=== PATIENT | male | born 1945 | race African-American/Black ===

== ENCOUNTER → 2016-12-05 | Outpatient (CLI) | payer OTHER, BC ==
[~2016-12-05] MED LIST: AMAN100T PO; ASPI81TA28 PO; CARB50TA3 PO; FLUD0.1T10 PO; MIDO5TAB PO; NRN100 PO; RAMI2.5C PO; RASA1TAB PO; RIVA1DIS TOP; [UNRECOGNIZED DRUG - CODE] TD
[2016-12-05 10:06] LABS: BASO % 1.3 %; BASO ABS # 0.06 K/uL (0-0.2); COMPLETE YES; EOS % 3.8 %; HEMATOCRIT 39.3 % (42-52); LYMPH % 20.6 %; LYMPH ABS # 0.97 K/uL (1.2-3.4); MEAN CELL VOLUME 86.6 fL (80-100); MEAN CORPUSCULAR HEMOGLOBIN 29.5 pg (25-34); MEAN CORPUSCULAR HGB CONC 34.1 g/dl (32-36); MEAN PLATELET VOLUME 9.1 fL (7.4-10.4); MONO % 7.8 %; NEUT % 66.5 %; PLATELET COUNT 190 K/uL (130-400); RED BLOOD COUNT 4.54 M/uL (4.7-6.1); WHITE BLOOD COUNT 4.72 K/uL (4.8-10.8)
[2016-12-05 10:17] LABS: ALT/SGPT 9 U/L (12-78); AST/SGOT 13 U/L (15-37); BLOOD UREA NITROGEN 30 mg/dl (7-18); BUN/CREATININE RATIO 20.2 (10-20); CALCIUM 9.5 mg/dl (8.5-10.1); CARBON DIOXIDE 29 mmol/L (21-32); CHLORIDE 106 mmol/L (98-107); GLUCOSE 98 mg/dl (70-99); POTASSIUM 4.3 mmol/L (3.5-5.1); SODIUM 139 mmol/L (136-145)
[2016-12-05 10:21] LABS: ALB/GLOB RATIO 1.1 (0.9-2); ALKALINE PHOSPHATASE 74 U/L (45-117)
== END | disposition home or self-care (01) ==
LOC: C.LAB1850 08:55
PROVIDERS: ATTEND Psychiatry & Neurology Neurology
DX: R56.9 Unspecified convulsions (principal)

== ENCOUNTER → 2016-12-18 | Outpatient (CLI) | payer OTHER, BC ==
[~2016-12-18] VITALS: Ht 175.3 cm; Wt 79.2 kg
[2016-12-18 15:53] VITALS: BP 164/88; PULSE 58; Ht 175.3 cm; Wt 79.2 kg
== END | disposition home or self-care (01) ==
LOC: C.NEUR 15:05
PROVIDERS: ATTEND Internal Medicine Pulmonary Disease
DX: G47.52 REM sleep behavior disorder (principal); G25.81 Restless legs syndrome; G20 Parkinson's disease; G47.00 Insomnia, unspecified

== ENCOUNTER 2017-04-02 14:28 | Emergency (ER) | payer OTHER, BC ==
[~2017-04-02] VITALS: Ht 175.3 cm; Wt 80.0 kg
[2017-04-02 14:45] VITALS: TEMP 36.8; Ht 175.3 cm; Wt 80.0 kg
--- NOTE | 2017-04-02 15:27 | EMERGENCY ROOM VISIT NOTE ---
History Report prepared by Emeli: Harshil Childs Under the Supervision of: Dr. Blu Schuster M.D. First contact with patient: 14:53 Chief Complaint: CHOKING Stated Complaint: FOOD STUCK IN THROAT-FELL BACKWARDS History of Present Illness The patient is a 71 year old male who presents to the Emergency Room with complaints of persistent choking starting around 50 minutes prior to arrival after eating a pastry. The patient's states that the patient ate a pastry and was then having some difficulty swallowing water afterwards. She states that she then performed the Heimlich maneuver twice, and both times some pieces of apple and pastry would come up. She states that afterwards the patient fell backwards, and hit his head, and then while on the ground he was hitting his head on the floor multiple times. The states that the patient has a history of Parkinson's and seizures, and the patient does not remember the episode though he did not lose consciousness. The additionally states that the patient was having difficulty walking earlier before this episode, and he seems to be a little weak. She additionally notes that the patient has had some cold symptoms recently, and he was coughing, sneezing, and he was sweating a little bit earlier. The patient states that he is currently up to date with his tetanus shot. Source of History: patient, spouse/significant other Onset: 50 minutes prior to arrival Position: other (global) Quality: other (choking) Timing: other (persistent) Associated Symptoms: + cough, No LOC Review of Systems See HPI for pertinent positives & negatives. A total of 10 systems reviewed and were otherwise negative. Past Medical & Surgical Medical Problems: (1) Bacteremia (2) Closed head injury (3) Encounter for removal of sutures (4) Erectile dysfunction (5) Facial laceration (6) Facial laceration (7) Facial laceration (8) Fall (9) Forehead laceration (10) HTN (hypertension) (11) Hypertension (12) Parkinson's disease (13) Recurrent UTI (urinary tract infection) (14) Sepsis (15) Thumb laceration Surgical Problems: (1) History of penile implant Family History FHx: cancer FHx: diabetes FHx: hypertension Social History Smoking Status: Never Smoker Alcohol Use: none Marital Status: Housing Status: lives with significant other Occupation Status: retired Current/Historical Medications Scheduled Amantadine Hcl (Symmetrel), 100 MG PO TID Aspirin (Aspirin Ec), 81 MG PO HS Carbidopa/Levodopa (Sinemet Cr 50MG/200MG), 1 TAB PO TID Clonazepam (Klonopin), 0.5 MG PO UD Gabapentin (Gabapentin), 400 MG PO DAILY Metoprolol Tartrate (Lopressor), 25 MG PO BID Midodrine Hcl (Midodrine Hcl), 5 MG PO TID Ramipril (Ramipril), 2.5 MG PO DAILY Rasagiline Mesylate (Azilect), 1 MG PO NOON Rivastigmine (Exelon), 1 PATCH TOP DAILY Rotigotine (Neupro), 8 MG TOP UD Scheduled PRN Mirabegron (Myrbetriq Er), 50 MG PO DAILY PRN for Allergies Coded Allergies: No Known Allergies (Unverified , 11/21/15) Physical Exam Vital Signs Date Time Temp Pulse Resp B/P (MAP) Pulse Ox O2 Delivery O2 Flow Rate FiO2 04/02/17 18:31 121/78 04/02/17 18:16 66 18 125/60 99 Room Air 04/02/17 17:35 62 207/125 04/02/17 17:11 61 167/113 04/02/17 16:57 61 219/131 97 Room Air 04/02/17 16:37 57 04/02/17 16:34 97 Room Air 04/02/17 16:33 57 19/113 97 Room Air 04/02/17 14:45 36.8 85 18 184/115 91 Room Air Physical Exam GENERAL: Patient is in no acute distress. HEENT: No facial trauma. Mucous membranes are moist. There is an abrasion to the right posterior scalp. NECK: No posterior cervical spine tenderness. No stridor, no adenopathy, no meningismus, trachea is midline. LUNGS: Clear to auscultation bilaterally, no wheeze, no rhonchi, breath sounds equal. HEART: Without murmurs gallops or rubs, regular rate and rhythm. ABDOMEN: Soft, nontender, bowel sounds positive, no hernias, no peritonitis. EXTREMITIES: No cyanosis or edema, full range of motion of all the joints without pain or difficulty, no signs for acute trauma. NEUROLOGIC: Awake, alert, moving all extremities equally. Confusion noted consistent with Parkinson's/dementia. GCS of 14. SKIN: No rash, no jaundice, no diaphoresis. Medical Decision & Procedures ER Provider Diagnostic Interpretation: Radiology results as stated below per my review and radiologist interpretation: CT HEAD WITHOUT CONTRAST (CT) CLINICAL HISTORY: Head trauma. Right occipital laceration. COMPARISON STUDY: 11/21/2015 TECHNIQUE: Axial CT of the brain is performed from the vertex to the skull base. IV contrast was not administered for this examination. A dose lowering technique was utilized adhering to the principles of ALARA. CT DOSE: 638.56 mGycm FINDINGS: No intra or extra-axial mass lesions are visualized. There is no CT evidence of acute cortical infarction. There is no evidence of midline shift. There is no acute hemorrhage. No calvarial fractures are visualized. There are patchy white matter hypodensities likely on a small vessel basis. There is no evidence of pathologic ventricular dilatation. There is no evidence of acute sinusitis IMPRESSION: No acute intracranial findings Electronically signed by: Jin Wong M.D. 04/02/2017 3:40 PM Dictated Date/Time: 04/02/2017 3:39 PM CHEST ONE VIEW PORTABLE CLINICAL HISTORY: Choking episode. Leg maneuver was performed. COMPARISON STUDY: 04/27/2015 FINDINGS: The heart is mildly enlarged. There is aortic tortuosity/ectasia. No pneumothorax is visualized. There is no pneumomediastinum. There is no focal pulmonary consolidation. There are no pleural effusions. An electronic device projects over the left chest, possibly representing an event recorder.[ IMPRESSION: No active disease in the chest. Electronically signed by: Jin Wong M.D. 04/02/2017 3:59 PM Dictated Date/Time: 04/02/2017 3:58 PM Laboratory Results 04/02/17 15:15 Red Blood Count 4.46, Mean Corpuscular Volume 87.9, Mean Corpuscular Hemoglobin 29.1, Mean Corpuscular Hemoglobin Concent 33.2, Mean Platelet Volume 9.1, Neutrophils (%) (Auto) 62.7, Lymphocytes (%) (Auto) 24.8, Monocytes (%) (Auto) 7.1, Eosinophils (%) (Auto) 4.8, Basophils (%) (Auto) 0.6, Neutrophils # (Auto) 3.00, Lymphocytes # (Auto) 1.19, Monocytes # (Auto) 0.34, Eosinophils # (Auto) 0.23, Basophils # (Auto) 0.03 04/02/17 15:15 Test 04/02/17 15:15 04/02/17 17:25 White Blood Count 4.79 K/uL (4.8-10.8) Red Blood Count 4.46 M/uL (4.7-6.1) Hemoglobin 13.0 g/dL (14.0-18.0) Hematocrit 39.2 % (42-52) Mean Corpuscular Volume 87.9 fL (80-100) Mean Corpuscular Hemoglobin 29.1 pg (25-34) Mean Corpuscular Hemoglobin Concent 33.2 g/dl (32-36) Platelet Count 152 K/uL (130-400) Mean Platelet Volume 9.1 fL (7.4-10.4) Neutrophils (%) (Auto) 62.7 % Lymphocytes (%) (Auto) 24.8 % Monocytes (%) (Auto) 7.1 % Eosinophils (%) (Auto) 4.8 % Basophils (%) (Auto) 0.6 % Neutrophils # (Auto) 3.00 K/uL (1.4-6.5) Lymphocytes # (Auto) 1.19 K/uL (1.2-3.4) Monocytes # (Auto) 0.34 K/uL (0.11-0.59) Eosinophils # (Auto) 0.23 K/uL (0-0.5) Basophils # (Auto) 0.03 K/uL (0-0.2) RDW Standard Deviation 44.9 fL (36.4-46.3) RDW Coefficient of Variation 13.9 % (11.5-14.5) Immature Granulocyte % (Auto) 0.0 % Immature Granulocyte # (Auto) 0.00 K/uL (0.00-0.02) Anion Gap 7.0 mmol/L (3-11) Est Creatinine Clear Calc Drug Dose 50.9 ml/min Estimated GFR () 60.6 Estimated GFR (Non- 52.3 BUN/Creatinine Ratio 23.9 (10-20) Calcium Level 9.5 mg/dl (8.5-10.1) Magnesium Level 2.2 mg/dl (1.8-2.4) Total Bilirubin 0.4 mg/dl (0.2-1) Aspartate Amino Transf (AST/SGOT) 14 U/L (15-37) Alanine Aminotransferase (ALT/SGPT) 9 U/L (12-78) Alkaline Phosphatase 68 U/L (45-117) Troponin I < 0.015 ng/ml (0-0.045) Total Protein 8.3 gm/dl (6.4-8.2) Albumin 4.5 gm/dl (3.4-5.0) Globulin 3.8 gm/dl (2.5-4.0) Albumin/Globulin Ratio 1.2 (0.9-2) Thyroid Stimulating Hormone (TSH) 0.912 uIu/ml (0.300-4.500) Urine Color DK YELLOW Urine Appearance CLEAR (CLEAR) Urine pH 5.5 (4.5-7.5) Urine Specific [place] 1.029 (1.000-1.030) Urine Protein NEG (NEG) Urine Glucose (UA) NEG (NEG) Urine Ketones TRACE (NEG) Urine Occult Blood NEG (NEG) Urine Nitrite NEG (NEG) Urine Bilirubin NEG (NEG) Urine Urobilinogen NEG (NEG) Urine Leukocyte Esterase TRACE (NEG) Urine WBC (Auto) 5-10 /hpf (0-5) Urine RBC (Auto) 0-4 /hpf (0-4) Urine Hyaline Casts (Auto) 0 /lpf (0-5) Urine Epithelial Cells (Auto) 20-30 /lpf (0-5) Urine Bacteria (Auto) NEG (NEG) Laboratory results reviewed by me. Medications Administered Medications (Trade) Dose Ordered Sig/Fernandez Route Start Time Stop Time Status Last Admin Dose Admin Sodium Chloride 500 ml @ 999 mls/hr Q31M STAT IV 04/02/17 16:05 04/02/17 16:35 DC 04/02/17 16:32 999 MLS/HR Hydralazine HCl (HydrALAZINE INJ) 10 mg NOW STAT IV 04/02/17 16:46 04/02/17 16:49 DC 04/02/17 16:56 10 MG Hydralazine HCl (HydrALAZINE INJ) 10 mg NOW STAT IV 04/02/17 17:46 04/02/17 17:47 DC 04/02/17 17:51 10 MG ECG Indication: other (choking episode) Rate (beats per minute): 55 Rhythm: sinus bradycardia Findings: T-wave inversion (Inferior), no ectopy, other (LVH) Comparison ECG Date: 11/21/15 Change: no significant change ED Course 1453: The patient was evaluated in room A4. A complete history and physical exam was performed. 1605: Sodium Chloride 500 ml @ 999 mls/hr IV 1644: I reevaluated the patient, and he was doing fine. He notes that he did not take his blood pressure medication this morning. 1646: Hydralazine HCl 10mg IV 1746: Hydralazine HCl 10mg IV 1814: Reevaluated the patient, and he is doing well. Discussed results and discharge instructions: He verbalized understanding and agreement. The patient is ready for discharge. Medical Decision Differential Diagnoses include: intracranial bleeding, skull fracture, dehydration, electrolyte imbalance, anemia, infection, choking episode, and aspiration. There is no leukocytosis or concerning anemia. No significant electrolyte abnormality, kidney failure or hepatitis. The patient appears to be in a euthyroid state. EKG shows a sinus rhythm, no acute ischemia. Cardiac enzyme testing times one does not suggest acute cardiac injury. Chest x-ray does not show pneumonia or pneumothorax. Brain CT shows no acute bleed or mass effect. Urinalysis does not show evidence for infection. On exam, there were no focal neurologic deficits. The patient received IV saline, he is resting comfortably. The patient had not taken his blood pressure medication today. He received IV hydralazine, he received 2 doses. His blood pressure is now nicely controlled. He states he does use hydralazine as needed at home for high blood pressure. The patient's workup is unrevealing. He is doing well, no respiratory distress , no wheezing. No evidence for concerning injury from the fall. The patient was reassured. He is being discharged. Head Trauma GCS Score: 14 Medication Reconcilliation Current Medication List: was personally reviewed by me Blood Pressure Screening Patient's blood pressure: Elevated blood pressure Blood pressure disposition: Referred to PCP Impression Primary Impression: Choking episode Additional Impressions: Fall Head trauma Hypertension Scribe Attestation The scribe's documentation has been prepared under my direction and personally reviewed by me in its entirety. I confirm that the note above accurately reflects all work, treatment, procedures, and medical decision making performed by me. Departure Information Dispostion Home / Self-Care Referrals No Doctor, Assigned (PCP) Forms HOME CARE DOCUMENTATION FORM, IMPORTANT VISIT INFORMATION Patient Instructions My [facility] [employer] [facility] Additional Instructions see delfin shafer this week for a recheck and blood pressure check be sure to keep a watch of your blood pressure and take your meds as prescribed return if worsening lab testing and imaging today was all ok Problem Qualifiers
[2017-04-02] MEDS ORDERED: NRN400 PO (15:29)
[2017-04-02] MEDS ORDERED: MIRA1TAB3 PO (15:29)
[2017-04-02] MEDS ORDERED: [UNRECOGNIZED DRUG - CODE] TOP (15:29)
[2017-04-02] MEDS ORDERED: CLON0.5T3 PO (15:29)
[2017-04-02] MEDS ORDERED: LPR25 PO (15:29)
[2017-04-02 15:41] LABS: BASO % 0.6 %; BASO ABS # 0.03 K/uL (0-0.2); COMPLETE YES; EOS % 4.8 %; HEMATOCRIT 39.2 % (42-52); LYMPH % 24.8 %; LYMPH ABS # 1.19 K/uL (1.2-3.4); MEAN CELL VOLUME 87.9 fL (80-100); MEAN CORPUSCULAR HEMOGLOBIN 29.1 pg (25-34); MEAN CORPUSCULAR HGB CONC 33.2 g/dl (32-36); MEAN PLATELET VOLUME 9.1 fL (7.4-10.4); MONO % 7.1 %; NEUT % 62.7 %; PLATELET COUNT 152 K/uL (130-400); RED BLOOD COUNT 4.46 M/uL (4.7-6.1); WHITE BLOOD COUNT 4.79 K/uL (4.8-10.8)
--- NOTE | 2017-04-02 15:41 | DIAGNOSTIC IMAGING REPORT ---
CT HEAD WITHOUT CONTRAST (CT) CLINICAL HISTORY: Head trauma. Right occipital laceration. COMPARISON STUDY: 11/21/2015 TECHNIQUE: Axial CT of the brain is performed from the vertex to the skull base. IV contrast was not administered for this examination. A dose lowering technique was utilized adhering to the principles of ALARA. CT DOSE: 638.56 mGycm FINDINGS: No intra or extra-axial mass lesions are visualized. There is no CT evidence of acute cortical infarction. There is no evidence of midline shift. There is no acute hemorrhage. No calvarial fractures are visualized. There are patchy white matter hypodensities likely on a small vessel basis. There is no evidence of pathologic ventricular dilatation. There is no evidence of acute sinusitis IMPRESSION: No acute intracranial findings Electronically signed by: Jin Wong M.D. 04/02/2017 3:40 PM Dictated Date/Time: 04/02/2017 3:39 PM
[2017-04-02 15:48] LABS: ALT/SGPT 9 U/L (12-78); BLOOD UREA NITROGEN 33 mg/dl (7-18); BUN/CREATININE RATIO 23.9 (10-20); CALCIUM 9.5 mg/dl (8.5-10.1); CARBON DIOXIDE 26 mmol/L (21-32); CHLORIDE 106 mmol/L (98-107); CREATININE 1.37 mg/dl (0.60-1.40); GLUCOSE 89 mg/dl (70-99); MAGNESIUM 2.2 mg/dl (1.8-2.4); POTASSIUM 4.1 mmol/L (3.5-5.1); SODIUM 139 mmol/L (136-145)
[2017-04-02 15:59] LABS: ALB/GLOB RATIO 1.2 (0.9-2); ALKALINE PHOSPHATASE 68 U/L (45-117); AST/SGOT 14 U/L (15-37); THYROID STIMULATING HORMONE 0.912 uIu/ml (0.300-4.500)
--- NOTE | 2017-04-02 16:01 | DIAGNOSTIC IMAGING REPORT ---
CHEST ONE VIEW PORTABLE CLINICAL HISTORY: Choking episode. Leg maneuver was performed. COMPARISON STUDY: 04/27/2015 FINDINGS: The heart is mildly enlarged. There is aortic tortuosity/ectasia. No pneumothorax is visualized. There is no pneumomediastinum. There is no focal pulmonary consolidation. There are no pleural effusions. An electronic device projects over the left chest, possibly representing an event recorder.[ IMPRESSION: No active disease in the chest. Electronically signed by: Jin Wong M.D. 04/02/2017 3:59 PM Dictated Date/Time: 04/02/2017 3:58 PM
[2017-04-02] MEDS ORDERED: SODIUM CHLORIDE 0.9% 500ML 500 ML IV STA (16:05)
[2017-04-02] MEDS ORDERED: HydrALAZINE HCL 20 MG/ML VIAL IV STA ×2 (16:46→17:46)
[2017-04-02 17:52] LABS: URINE APPEARANCE CLEAR (CLEAR); URINE BILIRUBIN NEG (NEG); URINE COLOR DK YELLOW; URINE EPITHELIAL CELL AUTO 20-30 /lpf (0-5); URINE NITRITE NEG (NEG); URINE PH 5.5 (4.5-7.5); URINE SPECIFIC GRAVITY 1.029 (1.000-1.030); UROBILINOGEN NEG (NEG); ZZUR CULT IF INDIC CLEAN CATCH NO
[2017-04-02 18:00] LABS: MANUAL MICROSCOPIC REQUIRED? NO; REVIEW REQ? NO
[2017-04-02 18:16] VITALS: PULSE 66; O2SAT 99
[2017-04-02 18:31] VITALS: BP 121/78
== END 2017-04-02 18:32 | disposition home or self-care (01) ==
LOC: C.EDB 14:30 → C.EDA 18:32
DX: R09.89 Other specified symptoms and signs involving the circulatory and respiratory systems (principal); S09.90XA Unspecified injury of head, initial encounter; W19.XXXA Unspecified fall, initial encounter; I10 Essential (primary) hypertension; R00.1 Bradycardia, unspecified; G20 Parkinson's disease; Z87.440 Personal history of urinary (tract) infections; Z87.828 Personal history of other (healed) physical injury and trauma; Z91.81 History of falling; Z98.890 Other specified postprocedural states; Z79.82 Long term (current) use of aspirin; Z79.899 Other long term (current) drug therapy

== ENCOUNTER → 2017-07-22 | Outpatient (CLI) | payer OTHER, BC ==
[~2017-07-22] MED LIST changes: +CLON0.5T3 PO; -FLUD0.1T10 PO; +LPR25 PO; +MIRA1TAB3 PO; -NRN100 PO; +NRN400 PO; -[UNRECOGNIZED DRUG - CODE] TD; +[UNRECOGNIZED DRUG - CODE] TOP
[2017-07-22 13:05] LABS: BASO % 0.7 %; BASO ABS # 0.04 K/uL (0-0.2); EOS % 2.6 %; EOS ABS # 0.15 K/uL (0-0.5); HEMATOCRIT 41.7 % (42-52); HEMOGLOBIN 13.9 g/dL (14.0-18.0); IG# 0.01 K/uL (0.00-0.02); LYMPH % 20.8 %; LYMPH ABS # 1.19 K/uL (1.2-3.4); MEAN CELL VOLUME 88.5 fL (80-100); MEAN CORPUSCULAR HEMOGLOBIN 29.5 pg (25-34); MEAN CORPUSCULAR HGB CONC 33.3 g/dl (32-36); MEAN PLATELET VOLUME 9.4 fL (7.4-10.4); MONO % 6.8 %; MONO ABS # 0.39 K/uL (0.11-0.59); NEUT % 68.9 %; NEUT ABS # 3.94 K/uL (1.4-6.5); PLATELET COUNT 189 K/uL (130-400); RED CELL DISTRIBUTION WIDTH CV 13.6 % (11.5-14.5); RED CELL DISTRIBUTION WIDTH SD 44.2 fL (36.4-46.3); WHITE BLOOD COUNT 5.72 K/uL (4.8-10.8)
[2017-07-22 14:01] LABS: ALBUMIN 3.9 gm/dl (3.4-5.0); BLOOD UREA NITROGEN 25 mg/dl (7-18); CALCIUM 9.3 mg/dl (8.5-10.1); CARBON DIOXIDE 27 mmol/L (21-32); CREATININE 1.37 mg/dl (0.60-1.40); GLUCOSE 81 mg/dl (70-99); POTASSIUM 4.2 mmol/L (3.5-5.1); SODIUM 138 mmol/L (136-145)
[2017-07-22 14:07] LABS: ALKALINE PHOSPHATASE 81 U/L (45-117); ALT/SGPT 9 U/L (12-78); AST/SGOT 11 U/L (15-37); CHOLESTEROL 163 mg/dl (0-200); LDL CHOLESTEROL CALCULATED 82 mg/dl; TOTAL PROTEIN 7.8 gm/dl (6.4-8.2)
== END | disposition home or self-care (01) ==
LOC: C.LAB1850 12:11
PROVIDERS: ATTEND Internal Medicine
DX: G20 Parkinson's disease (principal); G90.9 Disorder of the autonomic nervous system, unspecified; I10 Essential (primary) hypertension

== ENCOUNTER → 2017-10-08 | Outpatient (CLI) | payer OTHER, BC | END | disposition home or self-care (01) | LOC: C.LAB1850 15:44 | PROVIDERS: ATTEND Internal Medicine | DX: R39.9 Unspecified symptoms and signs involving the genitourinary system (principal) ==

== ENCOUNTER → 2018-01-02 | Outpatient (CLI) | payer OTHER, BC ==
[~2018-01-02] MED LIST changes: -CLON0.5T3 PO; +CLON0.5T9 PO
--- NOTE | 2018-01-02 14:56 | DIAGNOSTIC IMAGING REPORT ---
FACIAL BONES MIN 3 VIEWS RTN CLINICAL HISTORY: Fall. Facial bone pain. COMPARISON STUDY: None. FINDINGS: The calvarium, mandible, nasal bones, orbits, and zygomatic arches appear intact. No facial fractures identified. Paranasal sinuses and mastoid air cells are clear. The nasal septum is midline. IMPRESSION: No fractures identified within the facial bones by conventional radiographic technique. Of note, if the patient's pain continues to progress consider follow-up dedicated maxillofacial CT. Electronically signed by: Emil Riggs M.D. 01/02/2018 2:54 PM Dictated Date/Time: 01/02/2018 2:52 PM
--- NOTE | 2018-01-02 14:56 | DIAGNOSTIC IMAGING REPORT ---
R HAND MIN 3 VIEWS ROUTINE CLINICAL HISTORY: W19.XXXA RIGHT HAND PAIN STATUS POST TRAUMA COMPARISON: None. DISCUSSION: There is acute oblique fracture involving the midshaft of the fifth metacarpal. There is 43 degrees of vertex dorsal angulation at the fracture site. The distal fragment is posterior displacement x 4 mm. In addition there is a dorsal dislocation at the level of the proximal interphalangeal joint of the fifth finger. There is a lucency within the middle phalanx of the fourth digit. This appears nonaggressive. IMPRESSION: 1. Acute fracture involving the midshaft of the fifth metacarpal 2. Dorsal dislocation at the level of the proximal interphalangeal joint of the fifth finger Electronically signed by: Jin Wong M.D. 01/02/2018 2:54 PM Dictated Date/Time: 01/02/2018 2:52 PM
== END | disposition home or self-care (01) ==
LOC: C.RAD1850 14:37
PROVIDERS: ATTEND Internal Medicine
DX: T14.8XXA Other injury of unspecified body region, initial encounter (principal); W19.XXXA Unspecified fall, initial encounter

== ENCOUNTER 2018-08-04 11:58 | Inpatient (IN) ==
[~2018-08-04 11:58] MED LIST changes: -AMAN100T PO; -ASPI81TA28 PO; -CARB50TA3 PO; -CLON0.5T9 PO; +INFLUENZA VACCINE HIGH DOSE 65+ 0.5 ML SYR IM ONE; -LPR25 PO; -MIDO5TAB PO; -MIRA1TAB3 PO; -NRN400 PO; -RAMI2.5C PO; -RASA1TAB PO; -RIVA1DIS TOP; -[UNRECOGNIZED DRUG - CODE] TOP
[2018-08-04] MEDS ORDERED: SODIUM CHLORIDE 0.9% 1000ML 500 ML IV ONE (12:15)
[2018-08-04 12:16] LABS: Basophils # (auto) 0.02 K/uL (0-0.2); Basophils % (auto) 0.3 %; Eosinophils # (auto) 0.12 K/uL (0-0.5); Eosinophils % (auto) 1.9 %; Hematocrit (blood only) 40.4 % (42-52); Hemoglobin 12.7 g/dL (14.0-18.0); Immature Granulocytes # (auto) 0.07 K/uL (0.00-0.02); Immature Granulocytes % (auto) 1.1 %; Lymphocytes # (auto) 2.14 K/uL (1.2-3.4); Mean Corpuscular Hgb Conc 31.4 g/dL (32-36); Mean Corpuscular Volume 93.1 fL (80-100); Mean Platelet Volume 9.5 fL (7.4-10.4); Monocytes # (auto) 0.19 K/uL (0.11-0.59); Neutrophils # (auto) 3.75 K/uL (1.4-6.5); Neutrophils % (auto) 59.7 %; Platelet Count 169 K/uL (130-400); RDW Coefficient of Variation 13.5 % (11.5-14.5); RDW Standard Deviation 45.9 fL (36.4-46.3); Red Blood Count 4.34 M/uL (4.7-6.1); White Blood Count 6.29 K/uL (4.8-10.8)
--- NOTE | 2018-08-04 12:20 | XRay Report ---
SINGLE VIEW CHEST CLINICAL HISTORY: Intubation. FINDINGS: An AP, portable, upright chest radiograph is compared to study dated 04/27/2018. The examin ation is degraded by portable technique and patient rotation. A cardiac pad projects over the right c hest. The tip of an endotracheal tube may project above the thoracic inlet. The heart is mildly enlar ged. The pulmonary vasculature is noncongested. The lungs and pleural spaces are clear. No pneumothor ax is seen. The bony thorax is grossly intact. IMPRESSION: 1. The tip of an endotracheal tube may project above the thoracic inlet. This is not well visualized and clinical correlation will be required. 2. The lungs are clear. 3. Mild cardiac enlargement. Electronically signed by: Blu Patterson M.D. 08/04/2018 12:19 PM
[2018-08-04 12:25] LABS: iSTAT Creatinine 1.5 mg/dl (0.6-1.3); iSTAT Hemoglobin 13.9 g/dl (14.0-18.0); iSTAT Ionized Calcium 1.25 mmol/l (1.12-1.32); iSTAT Potassium 4.3 mEq/L (3.3-5.0)
[2018-08-04 12:31] LABS: iSTAT Arterial Blood Gas HCO3 23 meg/L (19-24); iSTAT Arterial Blood Gas pCO2 63 mmHg (35-46); iSTAT Arterial Blood Gas pH 7.17 (7.35-7.45); iSTAT Carbon Dioxide 25 mEq/l (24-31)
[2018-08-04 12:34] LABS: Alanine Aminotransferase 10 U/L (12-78); Albumin Level 3.6 gm/dl (3.4-5.0); Aspartate Aminotransferase 55 U/L (15-37); BUN Creatinine Ratio 16.9 (10-20); Blood Urea Nitrogen 31 mg/dl (7-18); Calcium 9.1 mg/dl (8.5-10.1); Carbon Dioxide 25 mmol/L (21-32); Chloride 107 mmol/L (98-107); Est GFR (African American) 41.8; Est GFR (Non-African American) 36.1; Glucose 201 mg/dl (70-99); Magnesium 2.2 mg/dl (1.8-2.4); Potassium 4.4 mmol/L (3.5-5.1); Sodium 143 mmol/L (136-145)
[2018-08-04 12:37] LABS: Alkaline Phosphatase 72 U/L (45-117); Bilirubin,Total 0.4 mg/dl (0.2-1); Globulin 3.6 gm/dl (2.5-4.0); Total Protein 7.2 gm/dl (6.4-8.2)
--- NOTE | 2018-08-04 12:41 | CT Scan Report ---
CT SCAN OF THE BRAIN WITHOUT IV CONTRAST CLINICAL HISTORY: Seizure. COMPARISON STUDY: CT of the brain dated 04/27/2018. TECHNIQUE: Unenhanced axial CT scan of the brain is performed from the vertex to the skull base. A do se lowering technique was utilized adhering to the principles of ALARA. The skull base was scanned tw ice due to motion artifact. FINDINGS: An endotracheal tube is noted on the labour market economist tomogram. Secretions are noted in the pharynx. Brain parenchyma: There are age-related involutional changes noting mild to moderate subcortical and periventricular microangiopathic change. There is no hemorrhage, mass effect, or evidence of acute t erritorial ischemia by CT criteria. Guerrier-white matter differentiation is preserved. No extra-axial fl uid collection is seen. Ventricles, sulci, cisterns: Prominent secondary to involutional change. Intracranial vasculature: There is atherosclerotic calcification of the cavernous carotid arteries. Calvarium: The skeletal structures are osteopenic. No depressed calvarial fracture is seen. Sinuses and mastoids: The visualized paranasal sinuses are clear. The mastoid air cells are well pneu matized. Orbits: The bony orbits are grossly intact. IMPRESSION: There is no hemorrhage, mass effect, or evidence of acute territorial ischemia by CT abdirahman munoz. Electronically signed by: Blu Patterson M.D. 08/04/2018 12:39 PM
--- NOTE | 2018-08-04 12:45 | CT Scan Report ---
CT cervical spine wo con CT DOSE: 1386.12 mGy.cm HISTORY: Trauma. Pain. Trauma fall eval for fx TECHNIQUE: Multiaxial CT images of the cervical spine were performed and reformatted in the sagittal and coronal plane without the use of contrast. A dose lowering technique was utilized adhering to th e principles of ALARA. COMPARISON: None. FINDINGS: No fractures. No subluxation. Prevertebral soft tissues and the C1-C2 interval are intact. No pneumothorax. Moderate degenerative disc change C5-C6 and to lesser extent C6-C7. IMPRESSION: No fractures within the cervical spine. Moderate degenerative change. Tracheostomy tube in position. The above report was generated using voice recognition software. It may contain grammatical, syntax or spelling errors. Electronically signed by: Sean Espinosa M.D. 08/04/2018 12:43 PM
[2018-08-04] MEDS ORDERED: ATROPINE SO4 1 MG/ML 1ML VIAL ONE (12:50)
[2018-08-04] MEDS ORDERED: ATROPINE SULFATE 0.1 MG/ML 10ML SYR IV STA (13:02)
[2018-08-04 13:05] LABS: INR 1.2 (0.9-1.1); Prothrombin Time 11.9 Seconds (9.0-12.0)
[2018-08-04] MEDS ORDERED: SODIUM BICARBONATE 8.4% INJ 50 MEQ/50 ML VIAL ONE (13:10)
[2018-08-04] MEDS ORDERED: SODIUM BICARB 8.4% INJ 50 MEQ/50 ML SYR ONE (13:11)
[2018-08-04] MEDS ORDERED: SODIUM BICARB 8.4% INJ 50 MEQ/50 ML SYR IV STA (13:19)
[2018-08-04] MEDS ORDERED: ICU PROTOCOL FOR HYPERGLYCEMIA PRN ×2 (13:28→15:36)
--- NOTE | 2018-08-04 13:31 | History & Physical Report ---
Date of Service August 04, 2018 Assessment & Plan (1) Cardiopulmonary arrest: - Pt possibly had a seizure for approx. 10 minutes and was found to be apneic and asystole upon arrival of EMS - was intubated and given epi x 1 which resulted in sinus tachycardia; then had episodes of bradycardia which responded to atropine in the ED - sustained cardiac arrest/respiratory failure/arrest - Currently remains intubated and unresponsive - head CT unremarkable with possible MRI - high suspicion for an anoxic brain injury - Initial ABG with pH 7.17, CO2 63, pO2 175, and HCO3 23 with serial ABGs ordered - Utilizing hyperventilation to help correct acidosis - Echo - EF 50-55%; no wall motion abnormalities - Lactic 2.5 - Appreciate roll plugger machine operator management of ventilator/acidosis Present on Admission?: Yes (2) Status epilepticus: - Reported seizure-like activity for approx. 10 minutes - questionable seizure history as family at bedside states he would only have them intermittently when he falls and only lasts approx. 30 seconsd which given his orthostasis and syncope history maybe these "seizures" are more from the syncope and this is related to autonomic dysregulation given his Parkinsons - No reports of emesis; CXR currently WNL without signs of aspiration event - Keppra 500 mg IV BID initiated and plan for EEG Present on Admission?: Yes (3) History of seizure: - See above Present on Admission?: Yes (4) CKD (chronic kidney disease), stage III: - Baseline appears to be 1.3-1.6 so currently slightly above baseline but has had higher Cr readings in the past - Wallace present and monitor urine output and trend labs as he would be at risk for ATN as he also had hypotension initially Present on Admission?: Yes (5) Essential hypertension: - Currently elevated but did have hypotension initially - Per outpatient records it is stated he is on Metoprolol which will need to be F/U on to see if this is truly being used as he does have issues with orth ostasis and takes midodrine Present on Admission?: Yes (6) Parkinson disease: - Amantadine 100 mg TID, Neupro patch daily; Rasagiline 1 mg daily; Exelon patch daily Present on Admission?: Yes History of Present Illness Chief Complaint: Cardiac Arrest Primary Care Provider: Francesco Mendez MD Mr. Pedersen is a 72 y/o male with PMHx of Advanced Parkinson's Disease, HTN, CKD III, and ?Seizure Disorder who presents to the ED by EMS for seizure activity and cardiac arrest. HPI obtained by at bedside as patient is currently intubated. She reports she heard a loud sound and thought he fell. However, when she found him he was sitting in the chair and actively seizing. She states this episode lasted about 10 minutes. She states he doesn't directly have a seizure disorder but seems to have seizures when he falls. He does have documented syncopal episodes likely related to autonomic dysregulation from Parkinsons and maybe these are more syncopal episodes? Regardless, these normally only last 30 seconds and comes to rather quickly. She states he remained unresponsive during this episode today. Upon arrival of EMS he was found to be apneic and asystole. CPR was initiated and he was intubated. He was given epinephrine x 1 with resultant sinus tachycardia. While in the ED, he then developed bradycardia and was treated with Atropine. Labs currently rather unremarkable at this time. ABG shows pH 7.17, CO2 63, pO2 175, and HCO3 of 23. states he has been in his normal state of health recently without illness. She denies known cardiac disease but states he had a loop recorder x 2 years that was removed due to no underlying arrhythmias noted. Allergies Allergy/AdvReac Type Severity Reaction Status Date / Time No Known Allergies Allergy Verified 08/04/18 13:49 Home Medications Home Medications Medication Instructions Recorded Confirmed Type Neupro 1 patch TRANSDERMAL DIRECTED 04/10/18 08/04/18 History amantadine HCl 100 mg PO TID 04/10/18 08/04/18 History aspirin [Aspir-81] 81 mg PO HS 04/10/18 08/04/18 History carbidopa-levodopa 1 tab PO TID 04/10/18 08/04/18 History clonazepam 0.5 mg PO HS PRN 04/10/18 08/04/18 History gabapentin 400 mg PO DAILY 04/10/18 08/04/18 History midodrine 5 mg PO BID 04/10/18 08/04/18 History omeprazole 20 mg PO DAILY 04/10/18 08/04/18 History rasagiline [Azilect] 1 mg PO DAILY 04/10/18 08/04/18 History rivastigmine [Exelon] 1 patch TRANSDERMAL DAILY 04/10/18 08/04/18 History metoprolol tartrate 25 mg PO BID 08/04/18 08/04/18 History Past Med/Surg History Medical History Seizure after head injury History of seizure (Chronic) Orthostatic hypotension (Acute) Parkinson disease (Chronic) Seizures (Chronic) Recurrent UTI (urinary tract infection) (12/06/13) Thumb laceration Surgical History History of tonsillectomy Family History Mother , age 67 of [address] No problems noted. Father No problems noted. Other Cancer HTN (hypertension) Heart disease Social History Laboratory Clerk Required: No Beliefs That Will Affect Care: None marital status: Current Living Situation: Spouse current occupational status: retired current occupation: Retired age 64 from [employer] in [facility]. Feels Safe at Home: Yes Smoking Status: Never smoker Hx Alcohol Use: No Hx Substance Use: No Review of Systems Unobtainable due to endotracheal tube and Unobtainable due to reduced conscio usness Physical Exam Vital Signs (Past 24 Hours): Last Vital Signs Pulse 61 08/04/18 13:31 Resp 22 08/04/18 13:31 BP 117/83 08/04/18 13:31 Pulse Ox 100 08/04/18 13:31 Constitutional: well developed and well nourished; no acute distress intubated Eyes: + anicteric sclerae and PERRL ENMT: mild bleeding noted to L upper lip; ET tube present Neck: trachea midline Respiratory: normal respiratory effort, lungs clear to auscultation Cardiovascular: Rate/Rhythm: regular rate and regular rhythm Heart Sounds: no murmur Vessels: normal peripheral pulses; no JVD Extremities: no edema Gastrointestinal (Abdomen): Inspection/Auscultation: normal bowel sounds Musculoskeletal: Head/Neck/Chest: normocephalic and head atraumatic (other than slight bleeding of upper L lip) Extremities: no cyanosis and no clubbing pulses 2+ with immediate cap refill Skin: no rashes, warm and dry Neurologic: intubated and unresponsive Psychiatric: Orientation: + not alert Results & Data Laboratory Results 08/04/18 08/04/18 08/04/18 Range/Units 17:15 17:08 16:52 WBC (4.8-10.8) K/uL RBC (4.7-6.1) M/uL Hgb (14.0-18.0) g/dL POC Hgb (14.0-18.0) g/dl Hct (42-52) % POC Hct (42-52) % MCV (80-100) fL MCH (25-34) pg MCHC (32-36) g/dL RDW Std Deviation (36.4-46.3) fL RDW Coeff of Lashawn (11.5-14.5) % Plt Count (130-400) K/uL MPV (7.4-10.4) fL Immature Gran % (Auto) % Neut % (Auto) % Lymph % (Auto) % [place] % (Auto) % Eos % (Auto) % Baso % (Auto) % Immature Gran # (Auto) (0.00-0.02) K/uL Neut # (Auto) (1.4-6.5) K/uL Lymph # (Auto) (1.2-3.4) K/uL [place] # (Auto) (0.11-0.59) K/uL Eos # (Auto) (0-0.5) K/uL Baso # (Auto) (0-0.2) K/uL PT INR APTT PTT Ratio Sample Site L Radial POC pH 7.55 H* (7.35-7.45) POC pCO2 28 L (35-46) mmHg POC pO2 199 H (80-95) mmHg POC HCO3 25 H (19-24) stacy/L POC Total CO2 25 (24-31) mEq/l POC Base Excess 2.0 H (-9-1.8) stacy/L POC ABG O2 Sat 100.0 H (90-95) % Stefano Test Pass O2 Delivery Device Ventilator POC O2 Rate 20 Minute Ventilation 17.8 POC FiO2 40 % Tidal Volume 500 PEEP 5 POC Sodium (135-144) mEq/L Sodium (136-145) mmol/L POC Potassium (3.3-5.0) mEq/L Potassium (3.5-5.1) mmol/L POC Chloride (101-112) mEq/L Chloride (98-107) mmol/L Carbon Dioxide (21-32) mmol/L Anion Gap (3-11) POC Anion Gap (16-25) mmol/L POC BUN (7-18) mg/dl BUN (7-18) mg/dl Creatinine (0.6-1.4) mg/dl POC Creatinine (0.6-1.3) mg/dl Est Cr Clr Drug Dosing Est GFR ( Amer) Est GFR (Non-Af Amer) BUN/Creatinine Ratio (10-20) Glucose (70-99) mg/dl POC Glucose 76 (70-99) POC Glucose (other) (70-99) mg/dl Lactate (0.4-2.0) mmol/L Calcium (8.5-10.1) mg/dl POC Ioniz Calcium Maykel (1.12-1.32) mmol/l Magnesium (1.8-2.4) mg/dl Total Bilirubin (0.2-1) mg/dl AST (15-37) U/L ALT (12-78) U/L Alkaline Phosphatase (45-117) U/L Total Protein (6.4-8.2) gm/dl Albumin (3.4-5.0) gm/dl Globulin (2.5-4.0) gm/dl Albumin/Globulin Ratio (0.9-2) Nasal Screen MRSA (PCR) (Negative) Levetiracetam Pending Blood Type Antibody Screen 08/04/18 08/04/18 08/04/18 Range/Units 15:57 15:57 15:30 WBC (4.8-10.8) K/uL RBC (4.7-6.1) M/uL Hgb (14.0-18.0) g/dL POC Hgb (14.0-18.0) g/dl Hct (42-52) % POC Hct (42-52) % MCV (80-100) fL MCH (25-34) pg MCHC (32-36) g/dL RDW Std Deviation (36.4-46.3) fL RDW Coeff of Lashawn (11.5-14.5) % Plt Count (130-400) K/uL MPV (7.4-10.4) fL Immature Gran % (Auto) % Neut % (Auto) % Lymph % (Auto) % [place] % (Auto) % Eos % (Auto) % Baso % (Auto) % Immature Gran # (Auto) (0.00-0.02) K/uL Neut # (Auto) (1.4-6.5) K/uL Lymph # (Auto) (1.2-3.4) K/uL [place] # (Auto) (0.11-0.59) K/uL Eos # (Auto) (0-0.5) K/uL Baso # (Auto) (0-0.2) K/uL PT INR APTT PTT Ratio Sample Site POC pH (7.35-7.45) POC pCO2 (35-46) mmHg POC pO2 (80-95) mmHg POC HCO3 (19-24) stacy/L POC Total CO2 (24-31) mEq/l POC Base Excess (-9-1.8) stacy/L POC ABG O2 Sat (90-95) % Stefano Test O2 Delivery Device POC O2 Rate Minute Ventilation POC FiO2 % Tidal Volume PEEP POC Sodium (135-144) mEq/L Sodium (136-145) mmol/L POC Potassium (3.3-5.0) mEq/L Potassium (3.5-5.1) mmol/L POC Chloride (101-112) mEq/L Chloride (98-107) mmol/L Carbon Dioxide (21-32) mmol/L Anion Gap (3-11) POC Anion Gap (16-25) mmol/L POC BUN (7-18) mg/dl BUN (7-18) mg/dl Creatinine (0.6-1.4) mg/dl POC Creatinine (0.6-1.3) mg/dl Est Cr Clr Drug Dosing Est GFR ( Amer) Est GFR (Non-Af Amer) BUN/Creatinine Ratio (10-20) Glucose (70-99) mg/dl POC Glucose (70-99) POC Glucose (other) (70-99) mg/dl Lactate 2.5 H* (0.4-2.0) mmol/L Calcium (8.5-10.1) mg/dl POC Ioniz Calcium Maykel (1.12-1.32) mmol/l Magnesium (1.8-2.4) mg/dl Total Bilirubin (0.2-1) mg/dl AST (15-37) U/L ALT (12-78) U/L Alkaline Phosphatase (45-117) U/L Total Protein (6.4-8.2) gm/dl Albumin (3.4-5.0) gm/dl Globulin (2.5-4.0) gm/dl Albumin/Globulin Ratio (0.9-2) Nasal Screen MRSA (PCR) Negative (Negative) Levetiracetam Blood Type A Positive Antibody Screen NEGATIVE 08/04/18 08/04/18 08/04/18 Range/Units 12:43 12:13 12:11 WBC (4.8-10.8) K/uL RBC (4.7-6.1) M/uL Hgb (14.0-18.0) g/dL POC Hgb 13.9 L (14.0-18.0) g/dl Hct (42-52) % POC Hct 41 L (42-52) % MCV (80-100) fL MCH (25-34) pg MCHC (32-36) g/dL RDW Std Deviation (36.4-46.3) fL RDW Coeff of Lashawn (11.5-14.5) % Plt Count (130-400) K/uL MPV (7.4-10.4) fL Immature Gran % (Auto) % Neut % (Auto) % Lymph % (Auto) % [place] % (Auto) % Eos % (Auto) % Baso % (Auto) % Immature Gran # (Auto) (0.00-0.02) K/uL Neut # (Auto) (1.4-6.5) K/uL Lymph # (Auto) (1.2-3.4) K/uL [place] # (Auto) (0.11-0.59) K/uL Eos # (Auto) (0-0.5) K/uL Baso # (Auto) (0-0.2) K/uL PT 11.9 INR 1.2 H APTT PTT Ratio Sample Site POC pH 7.17 L* (7.35-7.45) POC pCO2 63 H (35-46) mmHg POC pO2 175 H (80-95) mmHg POC HCO3 23 (19-24) stacy/L POC Total CO2 26 25 (24-31) mEq/l POC Base Excess -6.0 (-9-1.8) stacy/L POC ABG O2 Sat 99.0 H (90-95) % Stefano Test O2 Delivery Device POC O2 Rate Minute Ventilation POC FiO2 % Tidal Volume PEEP POC Sodium 145 H (135-144) mEq/L Sodium (136-145) mmol/L POC Potassium 4.3 (3.3-5.0) mEq/L Potassium (3.5-5.1) mmol/L POC Chloride 106 (101-112) mEq/L Chloride (98-107) mmol/L Carbon Dioxide (21-32) mmol/L Anion Gap (3-11) POC Anion Gap 19.0 (16-25) mmol/L POC BUN 34 H (7-18) mg/dl BUN (7-18) mg/dl Creatinine (0.6-1.4) mg/dl POC Creatinine 1.5 H (0.6-1.3) mg/dl Est Cr Clr Drug Dosing Est GFR ( Amer) Est GFR (Non-Af Amer) BUN/Creatinine Ratio (10-20) Glucose (70-99) mg/dl POC Glucose (70-99) POC Glucose (other) 199 H (70-99) mg/dl Lactate (0.4-2.0) mmol/L Calcium (8.5-10.1) mg/dl POC Ioniz Calcium Maykel 1.25 (1.12-1.32) mmol/l Magnesium (1.8-2.4) mg/dl Total Bilirubin (0.2-1) mg/dl AST (15-37) U/L ALT (12-78) U/L Alkaline Phosphatase (45-117) U/L Total Protein (6.4-8.2) gm/dl Albumin (3.4-5.0) gm/dl Globulin (2.5-4.0) gm/dl Albumin/Globulin Ratio (0.9-2) Nasal Screen MRSA (PCR) (Negative) Levetiracetam Blood Type Antibody Screen 08/04/18 08/04/18 08/04/18 Range/Units 12:05 12:05 12:05 WBC 6.29 (4.8-10.8) K/uL RBC 4.34 L (4.7-6.1) M/uL Hgb 12.7 L (14.0-18.0) g/dL POC Hgb (14.0-18.0) g/dl Hct 40.4 L (42-52) % POC Hct (42-52) % MCV 93.1 (80-100) fL MCH 29.3 (25-34) pg MCHC 31.4 L (32-36) g/dL RDW Std Deviation 45.9 (36.4-46.3) fL RDW Coeff of Lashawn 13.5 (11.5-14.5) % Plt Count 169 (130-400) K/uL MPV 9.5 (7.4-10.4) fL Immature Gran % (Auto) 1.1 % Neut % (Auto) 59.7 % Lymph % (Auto) 34.0 % [place] % (Auto) 3.0 % Eos % (Auto) 1.9 % Baso % (Auto) 0.3 % Immature Gran # (Auto) 0.07 H (0.00-0.02) K/uL Neut # (Auto) 3.75 (1.4-6.5) K/uL Lymph # (Auto) 2.14 (1.2-3.4) K/uL [place] # (Auto) 0.19 (0.11-0.59) K/uL Eos # (Auto) 0.12 (0-0.5) K/uL Baso # (Auto) 0.02 (0-0.2) K/uL PT Cancelled INR Cancelled APTT Cancelled PTT Ratio Cancelled Sample Site POC pH (7.35-7.45) POC pCO2 (35-46) mmHg POC pO2 (80-95) mmHg POC HCO3 (19-24) stacy/L POC Total CO2 (24-31) mEq/l POC Base Excess (-9-1.8) stacy/L POC ABG O2 Sat (90-95) % Stefano Test O2 Delivery Device POC O2 Rate Minute Ventilation POC FiO2 % Tidal Volume PEEP POC Sodium (135-144) mEq/L Sodium 143 (136-145) mmol/L POC Potassium (3.3-5.0) mEq/L Potassium 4.4 (3.5-5.1) mmol/L POC Chloride (101-112) mEq/L Chloride 107 (98-107) mmol/L Carbon Dioxide 25 (21-32) mmol/L Anion Gap 12.0 H (3-11) POC Anion Gap (16-25) mmol/L POC BUN (7-18) mg/dl BUN 31 H (7-18) mg/dl Creatinine 1.85 H (0.6-1.4) mg/dl POC Creatinine (0.6-1.3) mg/dl Est Cr Clr Drug Dosing Not Reportable Est GFR ( Amer) 41.8 Est GFR (Non-Af Amer) 36.1 BUN/Creatinine Ratio 16.9 (10-20) Glucose 201 H (70-99) mg/dl POC Glucose (70-99) POC Glucose (other) (70-99) mg/dl Lactate (0.4-2.0) mmol/L Calcium 9.1 (8.5-10.1) mg/dl POC Ioniz Calcium Maykel (1.12-1.32) mmol/l Magnesium 2.2 (1.8-2.4) mg/dl Total Bilirubin 0.4 (0.2-1) mg/dl AST 55 H (15-37) U/L ALT 10 L (12-78) U/L Alkaline Phosphatase 72 (45-117) U/L Total Protein 7.2 (6.4-8.2) gm/dl Albumin 3.6 (3.4-5.0) gm/dl Globulin 3.6 (2.5-4.0) gm/dl Albumin/Globulin Ratio 1.0 (0.9-2) Nasal Screen MRSA (PCR) (Negative) Levetiracetam Blood Type Antibody Screen Code Status & VTE Plan Code Status FULL RESUSCITATION Critical Care Time This includes chart review, patient assessment, dicussion with family, discussion with consultants, intervention. Critical Care Time: Yes Total Critical Care Time: 45 Supervising Physician Co-Signing Physician Notes DOE Supervision Note: I personally saw and examined the patient. I verified all frost points and agree with DOE Chavira with the following exceptions and/or additions: This patient is a 72-year-old male with a history of advanced Parkinson's disease, questionable seizure disorder as above, who presented after being found with seizure-like activity at home for approximately 10 minutes and had a respiratory and cardiac arrest. He was resuscitated in the field by paramedics and upon arrival in the ER, was unresponsive and intubated. He was found to be acidotic with an acute respiratory acidosis from acute hypoxic and hypercapnic respiratory failure. History otherwise as above ROS unobtainable due to reduced consciousness Labs and imaging reviewed Vitals reviewed Gen: Obtunded, does not respond to verbal or tactile stimulus, intubated, NAD HEENT: ET tube in place with bloody left upper lip CV: RRR no mgr nl S1S2 Pulm: CTAB no wcr Abd: +BS soft NT ND no masses or hernias Ext: No edema, 2+ DP pulses Skin: No rashes, warm/dry Neuro: Unresponsive as above 72-year-old male here with the above history with likely status epilepticus and ensuing respiratory arrest leading to cardiac arrest. Resuscitated in the field and now with possible acute hypoxic brain injury. Defer critical care management to roll plugger machine operator at this time Ventilator management as per roll plugger machine operator Acidosis management with hyperventilation No need for antibiotics at this time as no signs of infection Antiepileptic drugs are recommended by neurology based on EEG findings-he is on Keppra and is being sedated with propofol Prognosis is very guarded
--- NOTE | 2018-08-04 13:32 | Critical Care Consultation ---
Date of Consultation August 04, 2018 Assessment & Plan (1) Cardiopulmonary arrest: Reason Critically Ill: 72-year-old male status post seizure and cardiac arrest with successful return resuscitation infield, requiring intubation. Admitted to ICU for further care and management. Neuro - Currently unresponsive to stimuli, will consider MRI for rule out anoxic brain injury CAM ICU: Positive; Parkinson's disease- Continue Home meds Seizures- Given 1 mg Ativan in route - Obtain EEG - CT head negative - Restart clonazepam to avoid withdrawal when appropriate -IV Keppra BID Cardiac - Cardiac arrest - EKG sinus bradycardia,QTC 430 - Obtain lactic acid - Obtain TTE - Monitor and replete electrolytes - Continuous monitoring on telemetry - ASA 81mg Respiratory Respiratory failure 2/2 cardiac arrest - Intubated vent settings: ACVC 20/500/5/40%, ABG 7.17/63/175/23 - Routine ABGs - CXR unremarkable -AA nebs -Pulmonary toilet GI - Follow-up LFTs RENAL/LYTES CKD Patient creatinine/BUN consistent with prior studies. Monitor with routine BMPs Wallace, Strict I's and O's ENDO -ICU sliding scale protocol -Follow-up hemoglobin A1c HEME Monitor routine CBCs ID No indication for infectious process at this time, monitor LINES/IV ACCESS Peripheral IVs, Wallace DVT PROPHYLAXIS - SCDs, subcu heparin every 8 hours CODE STATUSfull code I have personally spent 95 minutes of critical care time in the direct management of this patient. This is a life/limb threatening event. This includes time spent evaluating patient, direct bedside care, chart review, placing orders, interpretation of diagnostic studies, discussion with consultants, patient, and/or family members regarding treatment decisions, as well as other required patient management activities. This time is exclusive of all separately billable procedures, and teaching time and separate from and in addition to any other critical care service time. (2) Seizure: (3) HTN (hypertension): (4) Parkinson disease: History of Present Illness History of Present Illness Mr. Pedersen is a 72-year-old male with past medical history significant for syncopal episodes, hypertension, orthostatic hypotension, advanced stage Park inson's disease, CKD who presents to the emergency department following a seizure which progressed into asystole cardiac arrest in Which paramedics successfully resuscitated the patient in the field with epinephrine and CPR to sinus tachycardia. The had found the patient seizing in chair, seizure lasted approximately 10 minutes after which the patient was apneic and unresponsive. After resuscitation the patient was intubated and given 1 mg Ativan in route to hospital by paramedics. On arrival to the ED, patient was bradycardic and given atropine. CT head and cervical spine both negative. ABG 7.17/63/175/23.Plan to transfer to ICU for further management of critically ill patient. Allergies Allergy/AdvReac Type Severity Reaction Status Date / Time No Known Allergies Allergy Verified 08/04/18 13:49 Home Medications Home Medications Medication Instructions Recorded Confirmed Type Neupro 1 patch TRANSDERMAL DIRECTED 04/10/18 08/04/18 History amantadine HCl 100 mg PO TID 04/10/18 08/04/18 History aspirin [Aspir-81] 81 mg PO HS 04/10/18 08/04/18 History carbidopa-levodopa 1 tab PO TID 04/10/18 08/04/18 History clonazepam 0.5 mg PO HS PRN 04/10/18 08/04/18 History gabapentin 400 mg PO DAILY 04/10/18 08/04/18 History midodrine 5 mg PO BID 04/10/18 08/04/18 History omeprazole 20 mg PO DAILY 04/10/18 08/04/18 History rasagiline [Azilect] 1 mg PO DAILY 04/10/18 08/04/18 History rivastigmine [Exelon] 1 patch TRANSDERMAL DAILY 04/10/18 08/04/18 History metoprolol tartrate 25 mg PO BID 08/04/18 08/04/18 History Patient History Medical History Seizure after head injury History of seizure (Chronic) Orthostatic hypotension (Acute) Parkinson disease (Chronic) Seizures (Chronic) Recurrent UTI (urinary tract infection) (12/06/13) Thumb laceration Surgical History History of tonsillectomy Family History Mother , age 67 of an [place] No problems noted. Father No problems noted. 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 Feels Safe at Home: Yes Smoking Status: Never smoker Hx Alcohol Use: No Hx Substance Use: No Review of Systems Unable to obtain 12 system ROS secondary to altered mental status Physical Exam Vital Signs (Past 24 Hours): Last Vital Signs Pulse 56 L 08/04/18 13:25 Resp 22 08/04/18 13:25 BP 88/66 L 08/04/18 13:25 Pulse Ox 100 08/04/18 13:25
[2018-08-04] MEDS ORDERED: GLUCOSE 40% GEL 15 GM TUBE PO PRN (15:36)
[2018-08-04] MEDS ORDERED: GLUCOSE 10 TABS/TUBE PO PRN (15:36)
[2018-08-04] MEDS ORDERED: ALBUT/IPRATROP 3MG/0.5MG NEB 3 ML VIAL INH PRN (15:36)
[2018-08-04] MEDS ORDERED: fentaNYL citrate 100 MCG/2 ML VIAL IV PRN (15:36)
[2018-08-04] MEDS ORDERED: NORMOSOL-R 1,000 ML IV SCH (15:36)
[2018-08-04] MEDS ORDERED: DEXTROSE 50% 50 ML SYRINGE IV PRN (15:36)
[2018-08-04] MEDS ORDERED: CARBOHYDRATES FOR HYPOGLYCEMIA PO PRN (15:36)
[2018-08-04] MEDS ORDERED: GLUCAGON FOR INJ 1 MG VIAL SQ PRN (15:36)
--- NOTE | 2018-08-04 16:25 | Emergency Department Note ---
Entered by Carito Dai acting as a scribe for Sameer Orellana MD History of Present Illness General Chief complaint: Cardiac Arrest/CPR Stated complaint: cardiac arrest Time Seen by Provider: 08/04/18 12:00 Source: family and EMS Mode of arrival: EMS Limitations: other (The HPI is limited secondary to unresponsiveness. ) History of Present Illness Onset (ago): hour(s) (1100) Location: head (seizure) Quality: + other (seizure) Associated symptoms: + seizure and + other (The patient is unresponsive. ) The HPI is limited secondary to unresponsiveness. 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 Per EMS, the patient was found by his in a chair while he was unresponsive and having a seizure. They note that the patients called EMS. When they arrived the patient was apneic and pulseless in asystole. They started resuscitation and he received 1 dose of epinephrine IV. He was intub ated and had return of spontaneous circulation. He was severely hypertensive and tachycardic. Home Medications Home Medications Medication Instructions Recorded Confirmed Type Neupro 1 patch TRANSDERMAL DIRECTED 04/10/18 08/04/18 History amantadine HCl 100 mg PO TID 04/10/18 08/04/18 History aspirin [Aspir-81] 81 mg PO HS 04/10/18 08/04/18 History carbidopa-levodopa 1 tab PO TID 04/10/18 08/04/18 History clonazepam 0.5 mg PO HS PRN 04/10/18 08/04/18 History gabapentin 400 mg PO DAILY 04/10/18 08/04/18 History midodrine 5 mg PO BID 04/10/18 08/04/18 History omeprazole 20 mg PO DAILY 04/10/18 08/04/18 History rasagiline [Azilect] 1 mg PO DAILY 04/10/18 08/04/18 History rivastigmine [Exelon] 1 patch TRANSDERMAL DAILY 04/10/18 08/04/18 History metoprolol tartrate 25 mg PO BID 08/04/18 08/04/18 History Allergies Allergy/AdvReac Type Severity Reaction Status Date / Time No Known Allergies Allergy Verified 08/04/18 13:49 Past Med/Surg History Medical History Seizure after head injury History of seizure Orthostatic hypotension (Acute) Parkinson disease (Chronic) Seizures (Chronic) Recurrent UTI (urinary tract infection) (12/06/13) Thumb laceration Surgical History History of tonsillectomy Family History Mother , age 67 of an [place] No problems noted. Father No problems noted. Other Cancer HTN (hypertension) Heart disease Social History Preferred Language: Sami Beliefs That Will Affect Care: None marital status: Current Living Situation: Family current occupational status: retired current occupation: Retired age 64 from [employer] in [employer]. Feels Safe at Home: Yes Smoking Status: Current some day smoker Hx Alcohol Use: No (One glass of wine per month at best.) Hx Substance Use: No Review of Systems See HPI for pertinent positives & negatives. Other (The HPI is limited secondary to unresponsiveness. ) Physical Exam Vital Signs Vital Signs - 24 hr 08/04/18 12:00 08/04/18 12:02 08/04/18 12:05 Temperature Temperature Source Sepsis Recent Fever Within 48 Hours No Sepsis New/Unexplained Change in Mental Status No Sepsis Action Taken by Nursing No Action Required End-Tidal CO2 43 46 End Tidal CO2 (18-54mmHg) Pulse Rate 64 64 Pulse Rate [Apical] Pulse Rate from SpO2 Sensor Pulse Rhythm Regular Pulse Rhythm [Apical] Respiratory Rate 14 Respiratory Effort / Characteristics Mechanically Ventilated Respiratory Depth Blood Pressure 94/69 L Blood Pressure [Right Arm] Blood Pressure Mean 77 Blood Pressure Mean [Right Arm] Blood Pressure Position Lying Blood Pressure Position [Right Arm] Pulse Oximetry 100 100 Oxygen Delivery Method Mechanical Vent Fraction of Inspired Oxygen 60 70 SaO2/FiO2 Ratio 08/04/18 12:06 08/04/18 12:08 08/04/18 12:10 Temperature Temperature Source Sepsis Recent Fever Within 48 Hours Sepsis New/Unexplained Change in Mental Status Sepsis Action Taken by Nursing End-Tidal CO2 45 46 47 End Tidal CO2 (18-54mmHg) Pulse Rate 63 63 63 Pulse Rate [Apical] Pulse Rate from SpO2 Sensor 64 63 63 Pulse Rhythm Pulse Rhythm [Apical] Respiratory Rate Respiratory Effort / Characteristics Respiratory Depth Blood Pressure 94/69 L Blood Pressure [Right Arm] Blood Pressure Mean 77 Blood Pressure Mean [Right Arm] Blood Pressure Position Blood Pressure Position [Right Arm] Pulse Oximetry 99 100 100 Oxygen Delivery Method Fraction of Inspired Oxygen SaO2/FiO2 Ratio 08/04/18 12:13 08/04/18 12:15 08/04/18 12:17 Temperature Temperature Source Sepsis Recent Fever Within 48 Hours Sepsis New/Unexplained Change in Mental Status Sepsis Action Taken by Nursing End-Tidal CO2 40 44 End Tidal CO2 (18-54mmHg) Pulse Rate 61 61 59 L Pulse Rate [Apical] Pulse Rate from SpO2 Sensor 61 Pulse Rhythm Pulse Rhythm [Apical] Respiratory Rate 20 Respiratory Effort / Characteristics Respiratory Depth Blood Pressure Blood Pressure [Right Arm] Blood Pressure Mean Blood Pressure Mean [Right Arm] Blood Pressure Position Blood Pressure Position [Right Arm] Pulse Oximetry 100 100 100 Oxygen Delivery Method Fraction of Inspired Oxygen 60 40 SaO2/FiO2 Ratio 08/04/18 12:35 08/04/18 12:36 08/04/18 12:37 Temperature Temperature Source Sepsis Recent Fever Within 48 Hours Sepsis New/Unexplained Change in Mental Status Sepsis Action Taken by Nursing End-Tidal CO2 22 24 End Tidal CO2 (18-54mmHg) 24 Pulse Rate 49 L 46 L 46 L Pulse Rate [Apical] 46 L Pulse Rate from SpO2 Sensor 48 L 46 L Pulse Rhythm Pulse Rhythm [Apical] Irregular Respiratory Rate 10 L 24 Respiratory Effort / Characteristics Spontaneous Respiratory Depth Deep Blood Pressure 101/70 Blood Pressure [Right Arm] 101/70 Blood Pressure Mean 80 Blood Pressure Mean [Right Arm] 80 Blood Pressure Position Blood Pressure Position [Right Arm] Lying Pulse Oximetry 100 100 100 Oxygen Delivery Method Mechanical Vent Fraction of Inspired Oxygen 40 40 SaO2/FiO2 Ratio 250 08/04/18 12:40 08/04/18 12:45 08/04/18 12:49 Temperature Temperature Source Sepsis Recent Fever Within 48 Hours Sepsis New/Unexplained Change in Mental Status Sepsis Action Taken by Nursing End-Tidal CO2 21 23 25 End Tidal CO2 (18-54mmHg) Pulse Rate 45 L 45 L 44 L Pulse Rate [Apical] Pulse Rate from SpO2 Sensor 46 L 45 L 44 L Pulse Rhythm Pulse Rhythm [Apical] Respiratory Rate Respiratory Effort / Characteristics Respiratory Depth Blood Pressure 89/59 L Blood Pressure [Right Arm] Blood Pressure Mean 69 Blood Pressure Mean [Right Arm] Blood Pressure Position Blood Pressure Position [Right Arm] Pulse Oximetry 100 100 100 Oxygen Delivery Method Fraction of Inspired Oxygen 40 SaO2/FiO2 Ratio 08/04/18 12:50 08/04/18 12:52 08/04/18 12:55 Temperature Temperature Source Sepsis Recent Fever Within 48 Hours Sepsis New/Unexplained Change in Mental Status Sepsis Action Taken by Nursing End-Tidal CO2 24 25 27 End Tidal CO2 (18-54mmHg) Pulse Rate 44 L 45 L 43 L Pulse Rate [Apical] Pulse Rate from SpO2 Sensor 44 L 45 L 43 L Pulse Rhythm Pulse Rhythm [Apical] Respiratory Rate Respiratory Effort / Characteristics Respiratory Depth Blood Pressure 89/59 L Blood Pressure [Right Arm] Blood Pressure Mean 69 Blood Pressure Mean [Right Arm] Blood Pressure Position Blood Pressure Position [Right Arm] Pulse Oximetry 100 100 100 Oxygen Delivery Method Fraction of Inspired Oxygen SaO2/FiO2 Ratio 08/04/18 12:56 08/04/18 13:00 08/04/18 13:01 Temperature Temperature Source Sepsis Recent Fever Within 48 Hours Sepsis New/Unexplained Change in Mental Status Sepsis Action Taken by Nursing End-Tidal CO2 26 26 27 End Tidal CO2 (18-54mmHg) Pulse Rate 61 61 60 Pulse Rate [Apical] 62 Pulse Rate from SpO2 Sensor 61 61 60 Pulse Rhythm Pulse Rhythm [Apical] Respiratory Rate 27 H Respiratory Effort / Characteristics Respiratory Depth Blood Pressure 102/74 86/62 L Blood Pressure [Right Arm] 102/74 Blood Pressure Mean 83 70 Blood Pressure Mean [Right Arm] 83 Blood Pressure Position Blood Pressure Position [Right Arm] Pulse Oximetry 100 100 100 Oxygen Delivery Method Mechanical Vent Fraction of Inspired Oxygen SaO2/FiO2 Ratio 08/04/18 13:04 08/04/18 13:05 08/04/18 13:08 Temperature Temperature Source Sepsis Recent Fever Within 48 Hours Sepsis New/Unexplained Change in Mental Status Sepsis Action Taken by Nursing End-Tidal CO2 28 End Tidal CO2 (18-54mmHg) Pulse Rate 61 Pulse Rate [Apical] 62 Pulse Rate from SpO2 Sensor 61 Pulse Rhythm Pulse Rhythm [Apical] Respiratory Rate 26 H Respiratory Effort / Characteristics Respiratory Depth Blood Pressure Blood Pressure [Right Arm] 85/59 L Blood Pressure Mean Blood Pressure Mean [Right Arm] 67 Blood Pressure Position Blood Pressure Position [Right Arm] Pulse Oximetry 100 100 100 Oxygen Delivery Method Mechanical Vent Mechanical Vent Fraction of Inspired Oxygen SaO2/FiO2 Ratio 08/04/18 13:10 08/04/18 13:15 08/04/18 13:20 Temperature Temperature Source Sepsis Recent Fever Within 48 Hours Sepsis New/Unexplained Change in Mental Status Sepsis Action Taken by Nursing End-Tidal CO2 28 28 29 End Tidal CO2 (18-54mmHg) Pulse Rate 62 64 61 Pulse Rate [Apical] Pulse Rate from SpO2 Sensor 62 64 61 Pulse Rhythm Pulse Rhythm [Apical] Respiratory Rate Respiratory Effort / Characteristics Respiratory Depth Blood Pressure 85/59 L 88/66 L Blood Pressure [Right Arm] Blood Pressure Mean 67 73 Blood Pressure Mean [Right Arm] Blood Pressure Position Blood Pressure Position [Right Arm] Pulse Oximetry 100 100 100 Oxygen Delivery Method Fraction of Inspired Oxygen SaO2/FiO2 Ratio 08/04/18 13:25 08/04/18 13:30 08/04/18 13:31 Temperature Temperature Source Sepsis Recent Fever Within 48 Hours Sepsis New/Unexplained Change in Mental Status Sepsis Action Taken by Nursing End-Tidal CO2 28 34 End Tidal CO2 (18-54mmHg) Pulse Rate 55 L 61 Pulse Rate [Apical] 56 L 61 Pulse Rate from SpO2 Sensor 55 L 60 Pulse Rhythm Pulse Rhythm [Apical] Respiratory Rate 22 22 Respiratory Effort / Characteristics Mechanically Ventilated Mechanically Ventilated Respiratory Depth Blood Pressure 117/83 Blood Pressure [Right Arm] 88/66 L 117/83 Blood Pressure Mean 94 Blood Pressure Mean [Right Arm] 73 94 Blood Pressure Position Blood Pressure Position [Right Arm] Lying Pulse Oximetry 100 100 100 Oxygen Delivery Method Mechanical Vent Mechanical Vent Fraction of Inspired Oxygen SaO2/FiO2 Ratio 08/04/18 13:35 08/04/18 13:40 08/04/18 13:45 Temperature Temperature Source Sepsis Recent Fever Within 48 Hours Sepsis New/Unexplained Change in Mental Status Sepsis Action Taken by Nursing End-Tidal CO2 32 34 36 End Tidal CO2 (18-54mmHg) Pulse Rate 62 61 62 Pulse Rate [Apical] Pulse Rate from SpO2 Sensor 62 62 62 Pulse Rhythm Pulse Rhythm [Apical] Respiratory Rate Respiratory Effort / Characteristics Respiratory Depth Blood Pressure 107/77 Blood Pressure [Right Arm] Blood Pressure Mean 87 Blood Pressure Mean [Right Arm] Blood Pressure Position Blood Pressure Position [Right Arm] Pulse Oximetry 100 100 100 Oxygen Delivery Method Fraction of Inspired Oxygen SaO2/FiO2 Ratio 08/04/18 13:50 08/04/18 13:55 08/04/18 14:00 Temperature 36.4 C L Temperature Source Oral Sepsis Recent Fever Within 48 Hours Sepsis New/Unexplained Change in Mental Status Sepsis Action Taken by Nursing End-Tidal CO2 36 33 End Tidal CO2 (18-54mmHg) 34 Pulse Rate 59 L 63 Pulse Rate [Apical] 61 Pulse Rate from SpO2 Sensor 59 L 62 Pulse Rhythm Pulse Rhythm [Apical] Regular Respiratory Rate 22 Respiratory Effort / Characteristics Mechanically Ventilated Respiratory Depth Blood Pressure 107/75 Blood Pressure [Right Arm] 101/75 Blood Pressure Mean 85 Blood Pressure Mean [Right Arm] 83 Blood Pressure Position Blood Pressure Position [Right Arm] Lying Pulse Oximetry 100 100 100 Oxygen Delivery Method Fraction of Inspired Oxygen 40 SaO2/FiO2 Ratio 250 08/04/18 14:10 08/04/18 14:20 08/04/18 14:30 Temperature Temperature Source Sepsis Recent Fever Within 48 Hours Sepsis New/Unexplained Change in Mental Status Sepsis Action Taken by Nursing End-Tidal CO2 34 33 32 End Tidal CO2 (18-54mmHg) 34 Pulse Rate 55 L 54 L 53 L Pulse Rate [Apical] 57 L Pulse Rate from SpO2 Sensor 55 L 54 L Pulse Rhythm Pulse Rhythm [Apical] Respiratory Rate 25 H Respiratory Effort / Characteristics Mechanically Ventilated Respiratory Depth Blood Pressure 112/77 113/80 114/81 Blood Pressure [Right Arm] 112/77 Blood Pressure Mean 88 91 92 Blood Pressure Mean [Right Arm] 88 Blood Pressure Position Blood Pressure Position [Right Arm] Lying Pulse Oximetry 100 100 100 Oxygen Delivery Method Mechanical Vent Fraction of Inspired Oxygen SaO2/FiO2 Ratio 08/04/18 14:40 08/04/18 14:50 08/04/18 14:51 Temperature Temperature Source Sepsis Recent Fever Within 48 Hours Sepsis New/Unexplained Change in Mental Status Sepsis Action Taken by Nursing End-Tidal CO2 33 33 34 End Tidal CO2 (18-54mmHg) Pulse Rate 50 L 52 L 48 L Pulse Rate [Apical] Pulse Rate from SpO2 Sensor 51 L 53 L Pulse Rhythm Pulse Rhythm [Apical] Respiratory Rate Respiratory Effort / Characteristics Respiratory Depth Blood Pressure 121/87 130/85 Blood Pressure [Right Arm] Blood Pressure Mean 98 100 Blood Pressure Mean [Right Arm] Blood Pressure Position Blood Pressure Position [Right Arm] Pulse Oximetry 100 100 100 Oxygen Delivery Method Fraction of Inspired Oxygen SaO2/FiO2 Ratio 08/04/18 15:00 Temperature Temperature Source Sepsis Recent Fever Within 48 Hours Sepsis New/Unexplained Change in Mental Status Sepsis Action Taken by Nursing End-Tidal CO2 End Tidal CO2 (18-54mmHg) Pulse Rate Pulse Rate [Apical] Pulse Rate from SpO2 Sensor Pulse Rhythm Pulse Rhythm [Apical] Respiratory Rate Respiratory Effort / Characteristics Respiratory Depth Blood Pressure Blood Pressure [Right Arm] Blood Pressure Mean Blood Pressure Mean [Right Arm] Blood Pressure Position Blood Pressure Position [Right Arm] Pulse Oximetry 100 Oxygen Delivery Method Room Air Mechanical Vent Fraction of Inspired Oxygen SaO2/FiO2 Ratio Limited examination due to the condition of the patient. Constitutional: Vital signs reviewed. Eyes: Pupils are unresponsive to light. Conjunctiva are noninjected. ENT: The patient is intubated. No blood in the ET tube. Respiratory: Clear to auscultation bilaterally with bagging. Breath sounds are equal bilaterally with bagging. Cardiovascular: Regular rate and rhythm. No rubs or gallops. GI: Soft, nondistended. Bowel sounds are present. Musculoskeletal: No peripheral edema. Integumentary: No cyanosis. Neurological: The patient is unresponsive and intubated. Psychiatric: Unable to assess. Course 1145: I instructed EMS to give the patient 1 of Ativan because of his blood p ressure and tachycardia. 1210: I spoke with the patient's family. His states that she heard a loud bang, presumably from the patient falling. She notes that she searched the house and found him in a chair seizing with his eyes rolled back. She states that it lasted for 3 minutes. She notes that EMS arrived in 20 minutes and they stated that he was apneic and pulseless. He had no complaints prior to this occurring. He has no cardiac history. 1230: The patient's blood pressure has improved. His heart rate is down in the 50s. He seems to be breathing off the vent. 1250: His heart rate was in the 40s and his blood pressure dropped to 89. He was given 0.5 of Ativan IV. I discussed the test results with the patients . She clarified that he does not get seizures unless he hits his head. After the Ativan, his blood pressure did improve and his heart rate went up to 60. 1255: I reviewed the patient's case with Dr. Ramires - Clinic Nurse [facility]. He states that he will come see the patient. 1259: I reviewed the patient's case with Dr. Nisreen Jovel - [facility]. She will evaluate the patient for further management. Consultations Consultation #1: [id number]: I reviewed the patient's case with Dr. Ramires - Clinic Nurse [facility]. He states that he will come see the patient. Time: 12:55 Consultation #2: [id number]: I reviewed the patient's case with Dr. Nielson Hospitalist - [facility]. She will evaluate the patient for further management. Time: 12:59 Administered Medications Parenteral Electrolytes (Normosol-R) 1,000 mls @ 125 mls/hr IV .Q8H JOIE Stop: 09/03/18 15:35 Last Admin: 08/04/18 15:59 Dose: 125 mls/hr Documented by: [id number] Discontinued Medications Atropine Sulfate (Atropine Sulfate 1mg/Ml) Confirm Administered Dose 1 mg .ROUTE .STK-MED ONE Stop: 08/04/18 12:51 Last Admin: 08/04/18 12:51 Dose: 0.5 mg Documented by: [id number] Atropine Sulfate (Atropine Sulfate) 0.5 mg IV NOW STA Stop: 08/04/18 13:03 Last Admin: 08/04/18 13:06 Dose: Not Given Documented by: [id number] Sodium Chloride (Nss 1000ml) 500 mls @ 999 mls/hr IV .Q31M ONE Stop: 08/04/18 12:45 Last Infusion: 08/04/18 12:53 Dose: 0 mls/hr Documented by: [id number] Admin: 08/04/18 12:20 Dose: 999 mls/hr Documented by: [id number] Sodium Bicarbonate (Sodium Bicarbonate 8.4%) Confirm Administered Dose 100 meq .ROUTE .STK-MED ONE Stop: 08/04/18 13:11 Last Admin: 08/04/18 13:15 Dose: Not Given Documented by: [id number] Sodium Bicarbonate (Sodium Bicarbonate 8.4%) Confirm Administered Dose 100 meq .ROUTE .STK-MED ONE Stop: 08/04/18 13:12 Last Admin: 08/04/18 13:24 Dose: 100 meq Documented by: [id number] Medical Decision Making Differential Diagnosis Differential Diagnoses Include: Respiratory arrest, Hypercapnia, respiratory failure, seizures, ICH, dysrhythmia, metabolic derangement. Medical Records Attestation: I reviewed the patient's medical records. Home Medications Current Medication List: was personally reviewed by me Laboratory Data Attestation: I reviewed the patient's lab results. Result diagrams: 08/04/18 12:05 08/04/18 12:05 Lab Results 08/04/18 08/04/18 08/04/18 Range/Units 12: 12:05 12:05 WBC 6.29 (4.8-10.8) K/uL RBC 4.34 L (4.7-6.1) M/uL Hgb 12.7 L (14.0-18.0) g/dL POC Hgb (14.0-18.0) g/dl Hct 40.4 L (42-52) % POC Hct (42-52) % MCV 93.1 (80-100) fL MCH 29.3 (25-34) pg MCHC 31.4 L (32-36) g/dL RDW Std Deviation 45.9 (36.4-46.3) fL RDW Coeff of Lashawn 13.5 (11.5-14.5) % Plt Count 169 (130-400) K/uL MPV 9.5 (7.4-10.4) fL Immature Gran % (Auto) 1.1 % Neut % (Auto) 59.7 % Lymph % (Auto) 34.0 % Greenlee % (Auto) 3.0 % Eos % (Auto) 1.9 % Baso % (Auto) 0.3 % Immature Gran # (Auto) 0.07 H (0.00-0.02) K/uL Neut # (Auto) 3.75 (1.4-6.5) K/uL Lymph # (Auto) 2.14 (1.2-3.4) K/uL Greenlee # (Auto) 0.19 (0.11-0.59) K/uL Eos # (Auto) 0.12 (0-0.5) K/uL Baso # (Auto) 0.02 (0-0.2) K/uL PT Cancelled INR Cancelled APTT Cancelled PTT Ratio Cancelled POC pH (7.35-7.45) POC pCO2 (35-46) mmHg POC pO2 (80-95) mmHg POC HCO3 (19-24) stacy/L POC Total CO2 (24-31) mEq/l POC Base Excess (-9-1.8) stacy/L POC ABG O2 Sat (90-95) % POC Sodium (135-144) mEq/L Sodium 143 (136-145) mmol/L POC Potassium (3.3-5.0) mEq/L Potassium 4.4 (3.5-5.1) mmol/L POC Chloride (101-112) mEq/L Chloride 107 (98-107) mmol/L Carbon Dioxide 25 (21-32) mmol/L Anion Gap 12.0 H (3-11) POC Anion Gap (16-25) mmol/L POC BUN (7-18) mg/dl BUN 31 H (7-18) mg/dl Creatinine 1.85 H (0.6-1.4) mg/dl POC Creatinine (0.6-1.3) mg/dl Est Cr Clr Drug Dosing Not Reportable Est GFR ( Amer) 41.8 Est GFR (Non-Af Amer) 36.1 BUN/Creatinine Ratio 16.9 (10-20) Glucose 201 H (70-99) mg/dl POC Glucose (other) (70-99) mg/dl Calcium 9.1 (8.5-10.1) mg/dl POC Ioniz Calcium Maykel (1.12-1.32) mmol/l Magnesium 2.2 (1.8-2.4) mg/dl Total Bilirubin 0.4 (0.2-1) mg/dl AST 55 H (15-37) U/L ALT 10 L (12-78) U/L Alkaline Phosphatase 72 (45-117) U/L Total Protein 7.2 (6.4-8.2) gm/dl Albumin 3.6 (3.4-5.0) gm/dl Globulin 3.6 (2.5-4.0) gm/dl Albumin/Globulin Ratio 1.0 (0.9-2) 08/04/18 08/04/18 08/04/18 Range/Units 12:11 12:13 12:43 WBC (4.8-10.8) K/uL RBC (4.7-6.1) M/uL Hgb (14.0-18.0) g/dL POC Hgb 13.9 L (14.0-18.0) g/dl Hct (42-52) % POC Hct 41 L (42-52) % MCV (80-100) fL MCH (25-34) pg MCHC (32-36) g/dL RDW Std Deviation (36.4-46.3) fL RDW Coeff of Lashawn (11.5-14.5) % Plt Count (130-400) K/uL MPV (7.4-10.4) fL Immature Gran % (Auto) % Neut % (Auto) % Lymph % (Auto) % Greenlee % (Auto) % Eos % (Auto) % Baso % (Auto) % Immature Gran # (Auto) (0.00-0.02) K/uL Neut # (Auto) (1.4-6.5) K/uL Lymph # (Auto) (1.2-3.4) K/uL Greenlee # (Auto) (0.11-0.59) K/uL Eos # (Auto) (0-0.5) K/uL Baso # (Auto) (0-0.2) K/uL PT 11.9 INR 1.2 H APTT PTT Ratio POC pH 7.17 L* (7.35-7.45) POC pCO2 63 H (35-46) mmHg POC pO2 175 H (80-95) mmHg POC HCO3 23 (19-24) stacy/L POC Total CO2 25 26 (24-31) mEq/l POC Base Excess -6.0 (-9-1.8) stacy/L POC ABG O2 Sat 99.0 H (90-95) % POC Sodium 145 H (135-144) mEq/L Sodium (136-145) mmol/L POC Potassium 4.3 (3.3-5.0) mEq/L Potassium (3.5-5.1) mmol/L POC Chloride 106 (101-112) mEq/L Chloride (98-107) mmol/L Carbon Dioxide (21-32) mmol/L Anion Gap (3-11) POC Anion Gap 19.0 (16-25) mmol/L POC BUN 34 H (7-18) mg/dl BUN (7-18) mg/dl Creatinine (0.6-1.4) mg/dl POC Creatinine 1.5 H (0.6-1.3) mg/dl Est Cr Clr Drug Dosing Est GFR ( Amer) Est GFR (Non-Af Amer) BUN/Creatinine Ratio (10-20) Glucose (70-99) mg/dl POC Glucose (other) 199 H (70-99) mg/dl Calcium (8.5-10.1) mg/dl POC Ioniz Calcium Maykel 1.25 (1.12-1.32) mmol/l Magnesium (1.8-2.4) mg/dl Total Bilirubin (0.2-1) mg/dl AST (15-37) U/L ALT (12-78) U/L Alkaline Phosphatase (45-117) U/L Total Protein (6.4-8.2) gm/dl Albumin (3.4-5.0) gm/dl Globulin (2.5-4.0) gm/dl Albumin/Globulin Ratio (0.9-2) Imaging Data Radiologist's Impression: Radiology results as stated below per my review and t he radiologist's interpretation: CT cervical spine wo con CT DOSE: 1386.12 mGy.cm HISTORY: Trauma. Pain. Trauma fall eval for fx TECHNIQUE: Multiaxial CT images of the cervical spine were performed and reformatted in the sagittal and coronal plane without the use of contrast. A dose lowering technique was utilized adhering to the principles of ALARA. COMPARISON: None. FINDINGS: No fractures. No subluxation. Prevertebral soft tissues and the C1-C2 interval are intact. No pneumothorax. Moderate degenerative disc change C5-C6 and to lesser extent C6-C7. IMPRESSION: No fractures within the cervical spine. Moderate degenerative change. Tracheostomy tube in position. The above report was generated using voice recognition software. It may contain grammatical, syntax or spelling errors. Electronically signed by: Sean Espinosa M.D. 08/04/2018 12:43 PM Dictated: 08/04/18 1241 Transcribed: 08/04/[address] SCAN OF THE BRAIN WITHOUT IV CONTRAST CLINICAL HISTORY: Seizure. COMPARISON STUDY: CT of the brain dated 04/27/2018. TECHNIQUE: Unenhanced axial CT scan of the brain is performed from the vertex to the skull base. A dose lowering technique was utilized adhering to the principles of ALARA. The skull base was scanned twice due to motion artifact. FINDINGS: An endotracheal tube is noted on the new vehicle sales consultant tomogram. Secretions are noted in the pharynx. Brain parenchyma: There are age-related involutional changes noting mild to moderate subcortical and periventricular microangiopathic change. There is no hemorrhage, mass effect, or evidence of acute territorial ischemia by CT criteria. Guerrier-white matter differentiation is preserved. No extra-axial fluid collection is seen. Ventricles, sulci, cisterns: Prominent secondary to involutional change. Intracranial vasculature: There is atherosclerotic calcification of the cavernous carotid arteries. Calvarium: The skeletal structures are osteopenic. No depressed calvarial fracture is seen. Sinuses and mastoids: The visualized paranasal sinuses are clear. The mastoid air cells are well pneumatized. Orbits: The bony orbits are grossly intact. IMPRESSION: There is no hemorrhage, mass effect, or evidence of acute territorial ischemia by CT criteria. Electronically signed by: Blu Patterson M.D. 08/04/2018 12:39 PM Dictated: 08/04/18 1236 Transcribed: 08/04/18 1236 SINGLE VIEW CHEST CLINICAL HISTORY: Intubation. FINDINGS: An AP, portable, upright chest radiograph is compared to study dated 04/27/2018. The examination is degraded by portable technique and patient rotation. A cardiac pad projects over the right chest. The tip of an endotracheal tube may project above the thoracic inlet. The heart is mildly enlarged. The pulmonary vasculature is noncongested. The lungs and pleural spaces are clear. No pneumothorax is seen. The bony thorax is grossly intact. IMPRESSION: 1. The tip of an endotracheal tube may project above the thoracic inlet. This is not well visualized and clinical correlation will be required. 2. The lungs are clear. 3. Mild cardiac enlargement. Electronically signed by: Blu Patterson M.D. 08/04/2018 12:19 PM Dictated: 08/04/18 1217 Transcribed: 08/04/18 1217 ECG Data Attestation: I personally reviewed and interpreted this ECG as follows: Indication: other (seizure) Rate (beats per minute): 64 Rhythm: normal sinus Findings: no PVC and no ST elevation Additional Comments: Repeat EKG: Sinus bradycardia with a rate of 42 beats per minute. No ST elevation, no PVC. Blood Pressure Blood Pressure Findings: Normal blood pressure Head Trauma GCS Score: 3 MDM Narrative I did perform a limited focused review of portions of the patient's old chart on the electronic medical record. The patient was admitted for a seizure in 04/2018. I did provide prehospital medical command for the patient. I was told that the patient has a seizure disorder and had a seizure and then went into cardiopulmonary arrest. He was severely hypertensive and tachycardic upon ROSC. I did order Ativan 1 mg IV. I did evaluate the patient immediately on arrival as noted above. His vital signs are significantly improved. He is no longer tachycardic. His blood pressure is only very slightly low. IV access was established. He was given normal saline IV. The patient was placed on a continuous monitoring and evaluation advisor. I did obtain further history from the patient's upon arrival here. She states that the patient does not have a seizure disorder for which she is treated with daily medications. She states that his seizures are only elicited when he hits his head. She stated that she was home and heard a loud noise compatible with him falling. She searched the house and found him sitting on a chair having a seizure. He had gurgling respirations at the time. She called EMS and upon their arrival he was in cardiopulmonary arrest. The patient was therefore placed in a c-collar given the history of injury. I did order and personally review the patient's 12-lead EKG and chest x-ray as described above. His twelve-lead EKG does not show any signs of acute ischemia. His chest x-ray demonstrates that the ET tube is in place. No pneumothorax or pneumonia. I did order and review the patient's blood work as noted in the electronic medical record. He has a chronically elevated creatinine. BSG is elevated. ABG demonstrates a respiratory acidosis with hypercapnia. His ventilatory rate was increased by respiratory. I did order a CT of the head and cervical spine. I did review the images myself as well as the radiology report as described above. There is no evidence of acute fracture or intracranial hemorrhage. I did reassess the patient several times. He became bradycardic and slightly more hypotensive. I therefore treated him with atropine 0.5 mg IV. His blood pressure and heart rate improved. I did discuss the test results with the patient's family. I did discuss the case with the horticulture teacher who accepted the patient to the ICU. I did discuss case with the hospitalist and pillowcase folder. Impression & Plan Cardiopulmonary arrest, Seizure, Bradycardia, Head injury Critical Care Time I have personally spent 45 minutes of critical care time in the direct management of this patient. This includes bedside care, interpretation of diagnostic studies, and testing, discussion with consultants, patient, and family members, and other required patient management activities. This 45 minutes is in excess of all separately billable procedures. Critical Care Time: Yes (45) Total Critical Care Time: 45 Discharge Plan Visit Data *Final* Discharge Date/Time: 08/04/18 15:00 Chief Complaint: Cardiac Arrest/CPR Stated Complaint: cardiac arrest ED Provider: Sameer Orellana Discharge Problem: Cardiopulmonary arrest, Seizure, Bradycardia, Head injury Patient Disposition: Admitted As Inpatient Discharge Instructions Interventions: ED Discharge Assessment Last Done: 08/04/18 15:00 Discharge Problem: Head injury Qualifiers: Encounter type: initial encounter Qualified Code(s): S09.90XA - Unspecified inj ury of head, initial encounter The scribe's documentation has been prepared under my direction and personally reviewed by me in its entirety. I confirm that the note above accurately reflec ts all work, treatment, procedures, and medical decision making performed by me.
[2018-08-04] MEDS: HEPARIN SOD 5,000 UNIT/0.5 ML VIAL SQ SCH ×2 (16:59→21:58)
[2018-08-04] MEDS ORDERED: PROPOFOL IV EMULSION 10 MG/ML 100 ML VIAL IV ONE (17:17)
[2018-08-04 17:29] LABS: iSTAT Allen Test Pass; iSTAT Arterial Blood Gas HCO3 25 meg/L (19-24); iSTAT Arterial Blood Gas pCO2 28 mmHg (35-46); iSTAT Arterial Blood Gas pH 7.55 (7.35-7.45); iSTAT Carbon Dioxide 25 mEq/l (24-31); iSTAT FiO2 40 %; iSTAT Site L Radial
[2018-08-04] MEDS: INSULIN ASPART 100 UNITS/ML 3 ML PEN SC SCH (17:31)
[2018-08-04] MEDS: SODIUM CHLORIDE 0.9% 1000ML 1,000 ML IV SCH (17:50)
[2018-08-04] MEDS: PROPOFOL 1,000 MG/100 ML VIAL IV SCH (17:51)
[2018-08-04] MEDS: fentaNYL citrate 100 MCG/2 ML VIAL IV PRN (17:59)
[2018-08-04] MEDS: MIDAZOLAM HCL 1 MG/ML 2ML VIAL IV PRN (17:59)
--- NOTE | 2018-08-04 18:16 | Procedure Note ---
EEG Procedure Note Date of Service August 04, 2018 Start / End Times Start Time: 5:48 PM End Time: 6:[address] Ramires History cardiac arrest, cerebral anoxia, jerking every 15 seconds Home Medication List Home Medications Medication Instructions Recorded Confirmed Type Neupro 1 patch TRANSDERMAL DIRECTED 04/10/18 08/04/18 History amantadine HCl 100 mg PO TID 04/10/18 08/04/18 History aspirin [Aspir-81] 81 mg PO HS 04/10/18 08/04/18 History carbidopa-levodopa 1 tab PO TID 04/10/18 08/04/18 History clonazepam 0.5 mg PO HS PRN 04/10/18 08/04/18 History gabapentin 400 mg PO DAILY 04/10/18 08/04/18 History midodrine 5 mg PO BID 04/10/18 08/04/18 History omeprazole 20 mg PO DAILY 04/10/18 08/04/18 History rasagiline [Azilect] 1 mg PO DAILY 04/10/18 08/04/18 History rivastigmine [Exelon] 1 patch TRANSDERMAL DAILY 04/10/18 08/04/18 History metoprolol tartrate 25 mg PO BID 08/04/18 08/04/18 History Inpatient Medication List Fentanyl Citrate (Fentanyl Citrate) 100 mcg IV Q2H PRN PRN Reason: Severe Pain (7,8,9,10) Stop: 08/18/18 15:35 Last Admin: 08/04/18 17:59 Dose: 100 mcg Documented by: [id number] Heparin Sodium (Porcine) (Heparin Sodium (Porcine)) 5,000 units SQ Q8 JOIE Stop: 09/03/18 15:35 Last Admin: 08/04/18 16:59 Dose: 5,000 units Documented by: [id number] Cosigned by: [id number] Parenteral Electrolytes (Normosol-R) 1,000 mls @ 125 mls/hr IV .Q8H JOIE Stop: 09/03/18 15:35 Last Infusion: 08/04/18 17:51 Dose: 0 mls/hr Documented by: [id number] Admin: 08/04/18 15:59 Dose: 125 mls/hr Documented by: [id number] Sodium Chloride (Nss 1000ml) 1,000 mls @ 125 mls/hr IV .Q8H JOIE Stop: 09/03/18 17:29 Last Admin: 08/04/18 17:50 Dose: 125 mls/hr Documented by: [id number] Propofol (Diprivan) 1,000 mg in 100 mls @ 2.49 mls/hr IV .Q24H JOIE; Protocol Stop: 08/07/18 17:24 Last Titration: 08/04/18 17:56 Dose: 50 mcg/kg/min, 24.9 mls/hr Documented by: [id number] Admin: 08/04/18 17:51 Dose: 10 mcg/kg/min, 5 mls/hr Documented by: [id number] Cosigned by: [id number] Insulin Aspart (Novolog Flexpen) 0 units SC Q6 JOIE Stop: 09/03/18 17:59 Last Admin: 08/04/18 17:31 Dose: Not Given Documented by: [id number] Cosigned by: [id number] Midazolam HCl (Versed) 2 mg IV Q2H PRN PRN Reason: agitation/anxiety Stop: 09/03/18 15:35 Last Admin: 08/04/18 17:59 Dose: 2 mg Documented by: [id number] Discontinued Medications Atropine Sulfate (Atropine Sulfate 1mg/Ml) Confirm Administered Dose 1 mg .ROUTE .STK-MED ONE Stop: 08/04/18 12:51 Last Admin: 08/04/18 12:51 Dose: 0.5 mg Documented by: [id number] Atropine Sulfate (Atropine Sulfate) 0.5 mg IV NOW STA Stop: 08/04/18 13:03 Last Admin: 08/04/18 13:06 Dose: Not Given Documented by: [id number] Sodium Chloride (Nss 1000ml) 500 mls @ 999 mls/hr IV .Q31M ONE Stop: 08/04/18 12:45 Last Infusion: 08/04/18 12:53 Dose: 0 mls/hr Documented by: [id number] Admin: 08/04/18 12:20 Dose: 999 mls/hr Documented by: [id number] Levetiracetam 1,000 mg/ (Dextrose) 110 mls @ 440 mls/hr IV NOW STA Stop: 08/04/18 16:41 Last Infusion: 08/04/18 17:51 Dose: 0 mls/hr Documented by: [id number] Admin: 08/04/18 16:59 Dose: 440 mls/hr Documented by: [id number] Miscellaneous (Order Awaiting Action) 1 ea N/A QS JOIE Stop: 09/03/18 15:59 Last Admin: 08/04/18 17:29 Dose: Not Given Documented by: [id number] Miscellaneous (Order Awaiting Action) 1 ea N/A QS JOIE Stop: 09/03/18 15:59 Last Admin: 08/04/18 17:28 Dose: Not Given Documented by: [id number] Miscellaneous (Order Awaiting Action) 1 ea N/A QS JOIE Stop: 09/03/18 15:59 Last Admin: 08/04/18 17:29 Dose: Not Given Documented by: [id number] Propofol (Diprivan) Confirm Administered Dose 1,000 mg IV .STK-MED ONE Stop: 08/04/18 17:18 Last Admin: 08/04/18 17:29 Dose: 1,000 mg Documented by: [id number] Cosigned by: [id number] Sodium Bicarbonate (Sodium Bicarbonate 8.4%) Confirm Administered Dose 100 meq .ROUTE .STK-MED ONE Stop: 08/04/18 13:11 Last Admin: 08/04/18 13:15 Dose: Not Given Documented by: [id number] Sodium Bicarbonate (Sodium Bicarbonate 8.4%) Confirm Administered Dose 100 meq .ROUTE .STK-MED ONE Stop: 08/04/18 13:12 Last Admin: 08/04/18 13:24 Dose: 100 meq Documented by: [id number] Description This is a 21 electrode EEG with a single channel dedicated to limited EKG. The e lectrodes were placed in accordance with the International 10-20 system. The background rhythm is poorly organized and of low amplitude. There are periodic high amplitude bursts of generalized, frontally predominant, spikes and spike waves, followed by suppression of the background rhythm. These bursts of activity are concordant with generalized myoclonic jerking observed on the video component of the study. There was no photic following response. 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 Would recommend treatment with an anticonvulsant.
--- NOTE | 2018-08-04 19:05 | XRay Report ---
XR KUB CLINICAL HISTORY: 72 years-old Male presenting with ng tube placement. TECHNIQUE: Single supine view of the abdomen was obtained. COMPARISON: None. FINDINGS: Nasogastric tube terminates in the region of the gastroesophageal junction potentially within the dis orestes esophagus. Nonobstructive bowel gas pattern though there is a significant stool burden present. N o gross pneumoperitoneum allowing for supine technique. Allowing for bowel gas and stool, no calcifications to suggest nephrolithiasis. Degenerative changes of the spine. Lung bases clear. IMPRESSION: 1. Nasogastric tube terminates in the region of the gastroesophageal junction; advancement recommend ed. 2. Findings suggest constipation. Electronically signed by: Juan Manuel Glass M.D. 08/04/2018 7:04 PM
--- NOTE | 2018-08-04 19:52 | XRay Report ---
XR KUB CLINICAL HISTORY: 72 years-old Male presenting with OG tube placement. TECHNIQUE: Single supine view of the abdomen was obtained. COMPARISON: 08/04/2018 at 6:56 PM. FINDINGS: The nasogastric tube does not appear to this and below the diaphragm. The tube is in standard looped in the region of the distal esophagus. The presence of a hiatal hernia is not excluded. This does not appear to follow the course of the left mainstem bronchus to raise concern for a non esophageal posi tion. Moderate stool burden. Nonobstructive bowel gas pattern. No gross pneumoperitoneum allowing for supin e technique. Degenerative changes of the spine. Lung bases poorly evaluated due to overpenetration. IMPRESSION: 1. Nasogastric tube position proximal to the stomach though this may be contained within a hiatal he rnia. Repositioning is recommended. Electronically signed by: Juan Manuel Glass M.D. 08/04/2018 7:50 PM
[2018-08-04] MEDS ORDERED: CISATRACURIUM BESYLATE 40 MG in 0.9 % SODIUM CHLORIDE 80 ML IV STA (20:35)
[2018-08-04] MEDS ORDERED: ASPIRIN 81 MG CHEW PO SCH (21:00)
[2018-08-04] MEDS ORDERED: ROTIGOTINE 6 MG/24 HR TOP SCH (21:00)
[2018-08-04] MEDS ORDERED: ACETAMINOPHEN SOL 650 MG/20.3 ML UDC PO PRN (21:00)
[2018-08-04] MEDS ORDERED: RIVASTIGMINE 13.3 MG/24 HR TD SCH (21:00)
[2018-08-04] MEDS: AMANTADINE HCL 100 MG CAPSULE PO SCH (21:57)
[2018-08-04] MEDS: CISATRACURIUM BESYLATE 40 MG in 0.9 % SODIUM CHLORIDE 80 ML IV SCH (23:44)
[2018-08-05] MEDS: INSULIN ASPART 100 UNITS/ML 3 ML PEN SC SCH ×2 (00:01→06:13)
[2018-08-05] MEDS: PROPOFOL 1,000 MG/100 ML VIAL IV SCH ×2 (00:28→06:19)
[2018-08-05] MEDS: SODIUM CHLORIDE 0.9% 1000ML 1,000 ML IV SCH ×2 (01:49→09:02)
[2018-08-05] MEDS: CISATRACURIUM BESYLATE 40 MG in 0.9 % SODIUM CHLORIDE 80 ML IV SCH ×3 (02:43→10:04)
[2018-08-05 03:27] LABS: Basophils # (auto) 0.01 K/uL (0-0.2); Basophils % (auto) 0.1 %; Hematocrit (blood only) 33.3 % (42-52); Hemoglobin 10.7 g/dL (14.0-18.0); Immature Granulocytes # (auto) 0.01 K/uL (0.00-0.02); Immature Granulocytes % (auto) 0.1 %; Lymphocytes % (auto) 7.4 %; Mean Corpuscular Hgb Conc 32.1 g/dL (32-36); Mean Corpuscular Volume 90.7 fL (80-100); Mean Platelet Volume 8.9 fL (7.4-10.4); Monocytes # (auto) 0.51 K/uL (0.11-0.59); Monocytes % (auto) 6.3 %; Neutrophils # (auto) 6.95 K/uL (1.4-6.5); Neutrophils % (auto) 86.1 %; Platelet Count 132 K/uL (130-400); RDW Coefficient of Variation 13.9 % (11.5-14.5); RDW Standard Deviation 46.5 fL (36.4-46.3); Red Blood Count 3.67 M/uL (4.7-6.1); White Blood Count 8.08 K/uL (4.8-10.8)
[2018-08-05 03:46] LABS: Albumin Level 2.9 gm/dl (3.4-5.0); BUN Creatinine Ratio 18.7 (10-20); Bilirubin Direct 0.1 mg/dl (0-0.2); Calcium 7.2 mg/dl (8.5-10.1); Creatinine Clr Calc Pharmacy 27.6 ml/min; Est GFR (African American) 29.2; Est GFR (Non-African American) 25.2; Magnesium 1.7 mg/dl (1.8-2.4); Potassium 4.1 mmol/L (3.5-5.1)
[2018-08-05 03:52] LABS: Bilirubin,Total 0.5 mg/dl (0.2-1); Phosphorus 3.4 mg/dl (2.5-4.9); Total Protein 5.8 gm/dl (6.4-8.2)
[2018-08-05] MEDS: HEPARIN SOD 5,000 UNIT/0.5 ML VIAL SQ SCH (05:25)
[2018-08-05] MEDS ORDERED: INFLUENZA ADMINISTRATION CHARGE ONE (06:00)
[2018-08-05] MEDS ORDERED: PNEUMOCOCCAL ADMINISTRATION CHARGE ONE (06:00)
[2018-08-05] MEDS ORDERED: PNEUMOCOCCAL POLYSACCHARIDES 25 MCG/0.5 ML VIAL/SYR IM ONE (06:00)
[2018-08-05 06:30] LABS: Estimated Average Glucose 126 mg/dl
[2018-08-05] MEDS: RASAGILINE 1 MG PO SCH ×2 (08:17)
[2018-08-05] MEDS: AMANTADINE HCL 100 MG CAPSULE PO SCH (08:17)
[2018-08-05] MEDS: MAGNESIUM SULFATE / D5W 1 GM/100 ML BAG IV SCH ×2 (08:22→09:14)
[2018-08-05] MEDS ORDERED: PANTOprazole 40 MG TAB PO SCH (09:00)
[2018-08-05] MEDS: MIDAZOLAM HCL 1 MG/ML 2ML VIAL IV PRN (09:02)
--- NOTE | 2018-08-05 09:41 | Critical Care Progress Note ---
Date of Service August 05, 2018 Assessment & Plan (1) Admitted to intensive care unit: The patient was admitted post pulmonary arrest. Currently he is having continuous seizure possibility of status epilepticus. The patient was also started on Keppra 1000 mg twice a day. The patient also remains on a ventilator. The neurology has evaluated the patient and according to the EEG which was done yesterday patient has anoxic encephalopathy. Because of continue seizure activity he is having a repeat EEG at this time. We are going to continue with all the management as prescribed including blood pressure control as well as seizure control medications. We also had a long discussion with the family and explained to them about current medical condition and family has made the patient DO NOT RESUSCITATE and continue with other treatment including ventilatory support as well as seizure medication and blood pressure medications. They have decided not to do CPR or shock post cardiac arrest. We are going to continue with the plan of care as prescribed. I also discussed with Dr. Slaughter a neurologist and the family and the nursing staff and respiratory therapist. I have spent greater than 35 minutes of critical care time. (2) Seizure: (3) Essential hypertension: (4) CKD (chronic kidney disease), stage III: (5) Status epilepticus: (6) Parkinson disease: (7) Acute anoxic encephalopathy: Subjective Mr. Pedersen is a 72 y/o male with PMHx of Advanced Parkinson's Disease, HTN, CKD III, and ?Seizure Disorder who presents to the ED by EMS for seizure activity and cardiac arrest. HPI obtained by at bedside as patient is currently intubated. She reports she heard a loud sound and thought he fell. However, when she found him he was sitting in the chair and actively seizing. She states this episode lasted about 10 minutes. She states he doesn't directly have a seizure disorder but seems to have seizures when he falls. He does have documented syncopal episodes likely related to autonomic dysregulation from Parkinsons and maybe these are more syncopal episodes? Regardless, these normally only last 30 seconds and comes to rather quickly. She states he remained unresponsive during this episode today. Upon arrival of EMS he was found to be apneic and asystole. CPR was initiated and he was intubated. He was given epinephrine x 1 with resultant sinus tachycardia. While in the ED, he then developed bradycardia and was treated with Atropine. Labs currently rather unremarkable at this time. ABG shows pH 7.17, CO2 63, pO2 175, and HCO3 of 23. states he has been in his normal state of health recently without illness. She denies known cardiac disease but states he had a loop recorder x 2 years that was removed due to no underlying arrhythmias noted. The patient still remains the same. Currently he is intubated and he was also evaluated by the neurology and according to the neurology patient is still having seizure. We have reviewed the EEG from yesterday and that was consistent with findings suggestive of anoxic encephalopathy. Since he is having continuous seizure the patient is having repeat EEG and will be further evaluated by neurology. We had a long discussion with the family yesterday and patient was made DNR/no CPR/no shock. Hemodynamically he is stable and is oxygenating well on current ventilatory settings. Physical Exam Vital Signs (Past 24 Hours): Last Vital Signs Temp 37.0 C 08/04/18 18:41 Pulse 72 08/05/18 09:00 Resp 23 08/05/18 09:00 BP 178/153 H 08/05/18 09:00 Pulse Ox 100 08/05/18 09:00 Physical Exam: Elderly male currently remains on a ventilator and he is also having seizure-like activities and is having the EEG. HEENT: PERRLA. Pupils are sluggishly reactive to light. They are constricted. Conjunctivae is clear. Sclera is anicteric. NECK: The neck is supple. No JVD. No lymphadenopathy. RESPIRATORY: Bilateral air entry with clear lungs, no wheezing, no crackles, no rhonchi anteriorly. HEART: S1-S2 heard, no murmur no rubs no gallops. GASTROINTESTINAL: The abdomen is soft, nontender, bowel sounds are positive. SKIN: No rash no lesions seen. NEUROLOGIC: The patient is sedated and remains on ventilator and currently he is seizing. Unable to examine in detail. PSYCHIATRIC: Unable to examine because of his current medical condition. Results & Data Laboratory Results Abnormal lab results 08/04/18 08/04/18 08/04/18 Range/Units 12:05 12:05 12:11 RBC 4.34 L (4.7-6.1) M/uL Hgb 12.7 L (14.0-18.0) g/dL POC Hgb (14.0-18.0) g/dl Hct 40.4 L (42-52) % POC Hct (42-52) % MCHC 31.4 L (32-36) g/dL RDW Std Deviation (36.4-46.3) fL Immature Gran # (Auto) 0.07 H (0.00-0.02) K/uL Neut # (Auto) (1.4-6.5) K/uL Lymph # (Auto) (1.2-3.4) K/uL INR (0.9-1.1) POC pH 7.17 L* (7.35-7.45) POC pCO2 63 H (35-46) mmHg POC pO2 175 H (80-95) mmHg POC HCO3 (19-24) stacy/L POC Base Excess (-9-1.8) stacy/L POC ABG O2 Sat 99.0 H (90-95) % POC Sodium (135-144) mEq/L Sodium (136-145) mmol/L Chloride (98-107) mmol/L Anion Gap 12.0 H (3-11) POC BUN (7-18) mg/dl BUN 31 H (7-18) mg/dl Creatinine 1.85 H (0.6-1.4) mg/dl POC Creatinine (0.6-1.3) mg/dl Glucose 201 H (70-99) mg/dl POC Glucose (70-99) POC Glucose (other) (70-99) mg/dl Hemoglobin A1c (4.5-5.6) % Lactate (0.4-2.0) mmol/L Calcium (8.5-10.1) mg/dl Magnesium (1.8-2.4) mg/dl AST 55 H (15-37) U/L ALT 10 L (12-78) U/L Total Protein (6.4-8.2) gm/dl Albumin (3.4-5.0) gm/dl 08/04/18 08/04/18 08/04/18 Range/Units 12:13 12:43 15:57 RBC (4.7-6.1) M/uL Hgb (14.0-18.0) g/dL POC Hgb 13.9 L (14.0-18.0) g/dl Hct (42-52) % POC Hct 41 L (42-52) % MCHC (32-36) g/dL RDW Std Deviation (36.4-46.3) fL Immature Gran # (Auto) (0.00-0.02) K/uL Neut # (Auto) (1.4-6.5) K/uL Lymph # (Auto) (1.2-3.4) K/uL INR 1.2 H (0.9-1.1) POC pH (7.35-7.45) POC pCO2 (35-46) mmHg POC pO2 (80-95) mmHg POC HCO3 (19-24) stacy/L POC Base Excess (-9-1.8) stacy/L POC ABG O2 Sat (90-95) % POC Sodium 145 H (135-144) mEq/L Sodium (136-145) mmol/L Chloride (98-107) mmol/L Anion Gap (3-11) POC BUN 34 H (7-18) mg/dl BUN (7-18) mg/dl Creatinine (0.6-1.4) mg/dl POC Creatinine 1.5 H (0.6-1.3) mg/dl Glucose (70-99) mg/dl POC Glucose (70-99) POC Glucose (other) 199 H (70-99) mg/dl Hemoglobin A1c (4.5-5.6) % Lactate 2.5 H* (0.4-2.0) mmol/L Calcium (8.5-10.1) mg/dl Magnesium (1.8-2.4) mg/dl AST (15-37) U/L ALT (12-78) U/L Total Protein (6.4-8.2) gm/dl Albumin (3.4-5.0) gm/dl 08/04/18 08/04/18 08/05/18 Range/Units 17:15 21:58 03:10 RBC 3.67 L (4.7-6.1) M/uL Hgb 10.7 L (14.0-18.0) g/dL POC Hgb (14.0-18.0) g/dl Hct 33.3 L (42-52) % POC Hct (42-52) % MCHC (32-36) g/dL RDW Std Deviation 46.5 H (36.4-46.3) fL Immature Gran # (Auto) (0.00-0.02) K/uL Neut # (Auto) 6.95 H (1.4-6.5) K/uL Lymph # (Auto) 0.60 L (1.2-3.4) K/uL INR (0.9-1.1) POC pH 7.55 H* (7.35-7.45) POC pCO2 28 L (35-46) mmHg POC pO2 199 H (80-95) mmHg POC HCO3 25 H (19-24) stacy/L POC Base Excess 2.0 H (-9-1.8) stacy/L POC ABG O2 Sat 100.0 H (90-95) % POC Sodium (135-144) mEq/L Sodium (136-145) mmol/L Chloride (98-107) mmol/L Anion Gap (3-11) POC BUN (7-18) mg/dl BUN (7-18) mg/dl Creatinine (0.6-1.4) mg/dl POC Creatinine (0.6-1.3) mg/dl Glucose (70-99) mg/dl POC Glucose (70-99) POC Glucose (other) (70-99) mg/dl Hemoglobin A1c (4.5-5.6) % Lactate 2.5 H* (0.4-2.0) mmol/L Calcium (8.5-10.1) mg/dl Magnesium (1.8-2.4) mg/dl AST (15-37) U/L ALT (12-78) U/L Total Protein (6.4-8.2) gm/dl Albumin (3.4-5.0) gm/dl 08/05/18 08/05/18 08/05/18 Range/Units 03:10 03:10 06:12 RBC (4.7-6.1) M/uL Hgb (14.0-18.0) g/dL POC Hgb (14.0-18.0) g/dl Hct (42-52) % POC Hct (42-52) % MCHC (32-36) g/dL RDW Std Deviation (36.4-46.3) fL Immature Gran # (Auto) (0.00-0.02) K/uL Neut # (Auto) (1.4-6.5) K/uL Lymph # (Auto) (1.2-3.4) K/uL INR (0.9-1.1) POC pH (7.35-7.45) POC pCO2 (35-46) mmHg POC pO2 (80-95) mmHg POC HCO3 (19-24) stacy/L POC Base Excess (-9-1.8) stacy/L POC ABG O2 Sat (90-95) % POC Sodium (135-144) mEq/L Sodium 146 H (136-145) mmol/L Chloride 114 H (98-107) mmol/L Anion Gap (3-11) POC BUN (7-18) mg/dl BUN 47 H D (7-18) mg/dl Creatinine 2.49 H D (0.6-1.4) mg/dl POC Creatinine (0.6-1.3) mg/dl Glucose (70-99) mg/dl POC Glucose 105 H (70-99) POC Glucose (other) (70-99) mg/dl Hemoglobin A1c 6.0 H (4.5-5.6) % Lactate (0.4-2.0) mmol/L Calcium 7.2 L D (8.5-10.1) mg/dl Magnesium 1.7 L (1.8-2.4) mg/dl AST 42 H (15-37) U/L ALT (12-78) U/L Total Protein 5.8 L (6.4-8.2) gm/dl Albumin 2.9 L (3.4-5.0) gm/dl Medications Administered Current Inpatient Medications Acetaminophen (Tylenol) 650 mg PO Q6 PRN PRN Reason: Fever Stop: 09/03/18 20:59 Last Admin: 08/04/18 21:05 Dose: 650 mg Documented by: Albuterol (Duoneb) 3 ml INH Q4H PRN PRN Reason: Dyspnea Stop: 09/03/18 15:35 Amantadine HCl (Symmetrel) 100 mg PO TID JOIE Stop: 09/03/18 20:59 Last Admin: 08/05/18 08:17 Dose: Not Given Documented by: Aspirin (Aspirin Chew) 81 mg PO HS JOIE Stop: 09/03/18 20:59 Last Admin: 08/04/18 21:54 Dose: 81 mg Documented by: Dextrose (Dextrose 50%) 25 - 50 ml IV UD PRN; Protocol PRN Reason: Hypoglycemia Protocol Stop: 09/03/18 15:35 Fentanyl Citrate (Fentanyl Citrate) 100 mcg IV Q2H PRN PRN Reason: Severe Pain (7,8,9,10) Stop: 08/18/18 15:35 Last Admin: 08/04/18 17:59 Dose: 100 mcg Documented by: Fentanyl Citrate (Fentanyl Citrate) 50 mcg IV Q2H PRN PRN Reason: Moderate Pain (4,5,6) Stop: 08/18/18 15:35 Glucagon (Glucagen) 1 mg SQ UD PRN; Protocol PRN Reason: Hypoglycemia Protocol Stop: 09/03/18 15:35 Glucose (Glucose 40%) 15 - 30 gm PO UD PRN; Protocol PRN Reason: Hypoglycemia Protocol Stop: 09/03/18 15:35 Glucose (Dex4 Glucose) 4 - 8 tabs PO UD PRN; Protocol PRN Reason: Hypoglycemia Protocol Stop: 09/03/18 15:35 Heparin Sodium (Porcine) (Heparin Sodium (Porcine)) 5,000 units SQ Q8 JOIE Stop: 09/03/18 15:35 Last Admin: 08/05/18 05:25 Dose: 5,000 units Documented by: Sodium Chloride (Nss 1000ml) 1,000 mls @ 125 mls/hr IV .Q8H JOIE Stop: 09/03/18 17:29 Last Admin: 08/05/18 09:02 Dose: 125 mls/hr Documented by: Propofol (Diprivan) 1,000 mg in 100 mls @ 14.94 mls/hr IV .Q6H42M JOIE; Protocol Stop: 08/07/18 17:24 Last Titration: 08/05/18 07:03 Dose: 30 mcg/kg/min, 14.9 mls/hr Documented by: Levetiracetam 1,000 mg/ (Dextrose) 110 mls @ 440 mls/hr IV Q12H JOIE Stop: 09/04/18 05:59 Last Infusion: 08/05/18 06:00 Dose: Infused Documented by: Cisatracurium Besylate 40 mg/ (Sodium Chloride) 100 mls @ 37.35 mls/hr IV .Q2H41M JOIE; Protocol Stop: 09/03/18 23:14 Last Titration: 08/05/18 08:10 Dose: Infused Documented by: Magnesium Sulfate/Dextrose (Magnesium Sulfate / D5w) 1 gm in 100 mls @ 100 mls/hr IV 0900,1000 [facility] Stop: 08/05/18 20:00 Last Admin: 08/05/18 09:14 Dose: 100 mls/hr Documented by: Pantoprazole Sodium 40 mg/ (Syringe) 10 mls @ 5 mls/min IV DAILY@1100 [facility] Stop: 08/08/18 11:01 Insulin Aspart (Novolog Flexpen) 0 units SC Q6 [facility] Stop: 09/03/18 17:59 Last Admin: 08/05/18 06:13 Dose: Not Given Documented by: Midazolam HCl (Versed) 2 mg IV Q2H PRN PRN Reason: agitation/anxiety Stop: 09/03/18 15:35 Last Admin: 08/05/18 09:02 Dose: 2 mg Documented by: Miscellaneous (Carbohydrates For Hypoglycemia) 15 - 30 gm PO UD PRN PRN Reason: Hypoglycemia Treatment Stop: 09/03/18 15:35 Miscellaneous (Icu Protocol For Hyperglycemia) 1 ea N/A PRN PRN; Protocol PRN Reason: Hyperglycemia Protocol Stop: 08/06/18 15:35 Miscellaneous (Remove Patch) 1 ea N/A Q24H [facility] Stop: 09/04/18 20:58 Miscellaneous (Remove Patch) 1 ea N/A Q24H [facility] Stop: 09/04/18 20:58 Rotigotine [Neupro] 6 Mg/24hr Patch - Non-Formulary Patient's Own Med 1 ea [facility] Stop: 09/03/18 20:59 Last Admin: 08/04/18 22:04 Dose: 6 mg Documented by: Rasagiline [Azilect] 1mg Tab - Non- Formulary Patient's Own Med 1 ea PO DAILY [facility] Stop: 09/03/18 17:29 Last Admin: 08/05/18 08:17 Dose: Not Given Documented by: Rivastigmine (Exelon) 1 patch [facility]; Protocol Stop: 09/03/18 20:59 Last Admin: 08/04/18 22:04 Dose: 1 patch Documented by:
[2018-08-05] MEDS ORDERED: SODIUM CHLORIDE IV STA (10:05)
[2018-08-05] MEDS ORDERED: FOSPHENYTOIN IV STA (10:05)
--- NOTE | 2018-08-05 10:08 | Neurology Consultation ---
Date of Consultation August 05, 2018 Assessment & Plan (1) Status epilepticus: This is a 72-year-old male with a history of advanced Parkinson's disease and associated autonomic nervous system dysregulation complicated by episodes of convulsive syncope who presents with cardiopulmonary arrest, anoxic encephalopathy, and status epilepticus. Would give 1.5 g of fosphenytoin equivalents. Continue Keppra 1000 mg IV every 12 hours. Recommend transfer to a tertiary center for continuous EEG monitoring and neuro critical care services. Discussed with the change management director as well as the patient's family. History of Present Illness Reason for Consultation: Seizures, cardiopulmonary arrest Requesting Physician: COTY Dalton Attending Physician: Noemí Nielson MD History of Present Illness The patient is a 72-year-old male with a history of advanced Parkinson's disease complicated by autonomic dysregulation and recurrent syncopal episodes, often times with associated convulsive activity. He follows with Dr. Arnold in the outpatient clinic and has had negative evaluations for epilepsy previously including an unremarkable EEG completed this past March. He has not been taking an anticonvulsant recently. The patient was found convulsing in a chair at home by his spouse yesterday at around 11 AM. Emergency medical personnel were summoned and found the patient apneic, pulseless and asystolic. CPR was administered. He was resuscitated and intubated and admitted to the ICU for further evaluation and management. He was observed to exhibit periodic, brief, generalized shaking of the limbs overnight concerning for seizures. He was treated with Keppra. An EEG was completed last night as well which I personally reviewed. The EEG revealed a periodic burst suppression pattern suggestive of post anoxic seizures. I discussed the case with the change management director and recommended increasing his dosage of Keppra. A CT of the head obtained upon presentation was unremarkable. No evidence of hemorrhage or other acute process. I reviewed the images as well as radiology interpretation of this test. The patient was evaluated this morning while in the intensive care unit on life support. He is unable to provide any information pertaining to his history of present illness. His paralytic medication was stopped and I was able to observe fairly continuous, mild shaking movements of the limbs potentially consistent with seizure activity. I had an additional discussion with this patient's family who are waiting in the conference room this morning. I explained to the patient's family that the exact reason for his seizures is not entirely clear although I suspect that his Parkinson's disease and associated autonomic dysregulation may have triggered his seizure and subsequent cardiac arrest and subsequent cerebral anoxia. A follow-up EEG was completed this morning and is suggestive of status epilepticus. This issue was also discussed with the patient's family as well as the change management director this morning. See assessment and plan for further details. Allergies Allergy/AdvReac Type Severity Reaction Status Date / Time No Known Allergies Allergy Verified 08/04/18 13:49 Home Medications Home Medications Medication Instructions Recorded Confirmed Type Neupro 1 patch TRANSDERMAL DIRECTED 04/10/18 08/04/18 History amantadine HCl 100 mg PO TID 04/10/18 08/04/18 History aspirin [Aspir-81] 81 mg PO HS 04/10/18 08/04/18 History carbidopa-levodopa 1 tab PO TID 04/10/18 08/04/18 History clonazepam 0.5 mg PO HS PRN 04/10/18 08/04/18 History gabapentin 400 mg PO DAILY 04/10/18 08/04/18 History midodrine 5 mg PO BID 04/10/18 08/04/18 History omeprazole 20 mg PO DAILY 04/10/18 08/04/18 History rasagiline [Azilect] 1 mg PO DAILY 04/10/18 08/04/18 History rivastigmine [Exelon] 1 patch TRANSDERMAL DAILY 04/10/18 08/04/18 History metoprolol tartrate 25 mg PO BID 08/04/18 08/04/18 History Patient History Medical History Seizure after head injury History of seizure (Chronic) Orthostatic hypotension (Acute) Parkinson disease (Chronic) Seizures (Chronic) Recurrent UTI (urinary tract infection) (12/06/13) Thumb laceration Surgical History History of tonsillectomy Family History Mother , age 67 of an MS No problems noted. Father No problems noted. Other Cancer HTN (hypertension) Heart disease Social History [employer] Required: No Beliefs That Will Affect Care: None marital status: Current Living Situation: Spouse current occupational status: retired current occupation: Retired age 64 from [employer] in [employer]. Feels Safe at Home: Yes Smoking Status: Never smoker Hx Alcohol Use: No Hx Substance Use: No Review of Systems Unable to obtain review of systems given patient's current mental status. Physical Exam Vital Signs (Past 24 Hours): Last Vital Signs Temp 37.0 C 08/04/18 18:41 Pulse 72 08/05/18 09:00 Resp 23 08/05/18 09:00 BP 178/153 H 08/05/18 09:00 Pulse Ox 100 08/05/18 09:00 Physical Exam: The patient is a well-developed elderly male. He is lying in the intensive care unit on life support. As described in the history of present illness, his paralytic medication was held and I was able to observe fairly continuous mild generalized shaking movements of the limbs consistent with seizure activity. The patient is unresponsive. Orientation cannot be assessed. Further, other higher integrative cognitive functions such as memory, concentr ation, speech pattern, and fund of knowledge cannot be assessed. Visual erickson cannot be assessed. Visual acuity cannot be assessed. Pupils are both pinpoint and minimally reactive to light. I am unable to elicit a corneal reflex or oculocephalic reflex. I am unable to elicit a gag reflex. There is no gaze preference. There is no nystagmus. Ophthalmoscopic examination cannot be performed due to pinpoint pupils. Carotid pulses normal bilaterally, no bruits to auscultation. Gait and station cannot be assessed. Muscle strength cannot be assessed. Muscle tone is diffusely flaccid. There is no atrophy. As above, fairly continuous mild generalized shaking movements of the limbs were observed. No resting tremor.
--- NOTE | 2018-08-05 10:28 | Procedure Note ---
EEG Procedure Note Date of Service August 05, 2018 Start / End Times Start Time: 9:22 AM End Time: 9:42 AM Referring Physician Earl Slaughter History This is a 72-year-old male who presents with anoxic brain injury and seizure- like activity. EEG for further evaluation of seizure etiology. Home Medication List Home Medications Medication Instructions Recorded Confirmed Type Neupro 1 patch TRANSDERMAL DIRECTED 04/10/18 08/04/18 History amantadine HCl 100 mg PO TID 04/10/18 08/04/18 History aspirin [Aspir-81] 81 mg PO HS 04/10/18 08/04/18 History carbidopa-levodopa 1 tab PO TID 04/10/18 08/04/18 History clonazepam 0.5 mg PO HS PRN 04/10/18 08/04/18 History gabapentin 400 mg PO DAILY 04/10/18 08/04/18 History midodrine 5 mg PO BID 04/10/18 08/04/18 History omeprazole 20 mg PO DAILY 04/10/18 08/04/18 History rasagiline [Azilect] 1 mg PO DAILY 04/10/18 08/04/18 History rivastigmine [Exelon] 1 patch TRANSDERMAL DAILY 04/10/18 08/04/18 History metoprolol tartrate 25 mg PO BID 08/04/18 08/04/18 History Inpatient Medication List Acetaminophen (Tylenol) 650 mg PO Q6 PRN PRN Reason: Fever Stop: 09/03/18 20:59 Last Admin: 08/04/18 21:05 Dose: 650 mg Documented by: [id number] Amantadine HCl (Symmetrel) 100 mg PO TID [facility] Stop: 09/03/18 20:59 Last Admin: 08/05/18 08:17 Dose: Not Given Documented by: [id number] Admin: 08/04/18 21:57 Dose: 100 mg Documented by: [id number] Aspirin (Aspirin Chew) 81 mg PO [facility] Stop: 09/03/18 20:59 Last Admin: 08/04/18 21:54 Dose: 81 mg Documented by: [id number] Fentanyl Citrate (Fentanyl Citrate) 100 mcg IV Q2H PRN PRN Reason: Severe Pain (7,8,9,10) Stop: 08/18/18 15:35 Last Admin: 08/04/18 17:59 Dose: 100 mcg Documented by: [id number] Heparin Sodium (Porcine) (Heparin Sodium (Porcine)) 5,000 units SQ Q8 JOIE Stop: 09/03/18 15:35 Last Admin: 08/05/18 05:25 Dose: 5,000 units Documented by: [id number] Cosigned by: [id number] Admin: 08/04/18 21:58 Dose: 5,000 units Documented by: [id number] Cosigned by: [id number] Admin: 08/04/18 16:59 Dose: 5,000 units Documented by: [id number] Cosigned by: [id number] Sodium Chloride (Nss 1000ml) 1,000 mls @ 125 mls/hr IV .Q8H [facility] Stop: 09/03/18 17:29 Last Admin: 08/05/18 09:02 Dose: 125 mls/hr Documented by: [id number] Infusion: 08/05/18 09:02 Dose: 125 mls/hr Documented by: [id number] Admin: 08/05/18 01:49 Dose: 125 mls/hr Documented by: [id number] Infusion: 08/05/18 01:49 Dose: 125 mls/hr Documented by: [id number] Infusion: 08/04/18 19:01 Dose: 125 mls/hr Documented by: [id number] Admin: 08/04/18 17:50 Dose: 125 mls/hr Documented by: [id number] Propofol (Diprivan) 1,000 mg in 100 mls @ 14.94 mls/hr IV .Q6H42M [facility]; Protocol Stop: 08/07/18 17:24 Last Titration: 08/05/18 07:03 Dose: 30 mcg/kg/min, 14.9 mls/hr Documented by: [id number] Cosigned by: [id number] Titration: 08/05/18 06:40 Dose: 30 mcg/kg/min, 14.9 mls/hr Documented by: [id number] Admin: 08/05/18 06:19 Dose: 25 mcg/kg/min, 12.5 mls/hr Documented by: [id number] Cosigned by: [id number] Titration: 08/05/18 06:19 Dose: 30 mcg/kg/min, 14.9 mls/hr Documented by: [id number] Cosigned by: [id number] Admin: 08/05/18 00:28 Dose: 30 mcg/kg/min, 14.9 mls/hr Documented by: [id number] Cosigned by: [id number] Titration: 08/05/18 00:28 Dose: 30 mcg/kg/min, 14.9 mls/hr Documented by: [id number] Cosigned by: [id number] Titration: 08/04/18 22:08 Dose: 30 mcg/kg/min, 14.9 mls/hr Documented by: [id number] Titration: 08/04/18 20:01 Dose: 25 mcg/kg/min, 12.5 mls/hr Documented by: [id number] Titration: 08/04/18 19:01 Dose: 20 mcg/kg/min, 10 mls/hr Documented by: [id number] Cosigned by: [id number] Titration: 08/04/18 17:56 Dose: 50 mcg/kg/min, 24.9 mls/hr Documented by: [id number] Admin: 08/04/18 17:51 Dose: 10 mcg/kg/min, 5 mls/hr Documented by: [id number] Cosigned by: [id number] Levetiracetam 1,000 mg/ (Dextrose) 110 mls @ 440 mls/hr IV Q12H JOIE Stop: 09/04/18 05:59 Last Infusion: 08/05/18 06:00 Dose: 0 mls/hr Documented by: [id number] Admin: 08/05/18 05:43 Dose: 440 mls/hr Documented by: [id number] Cisatracurium Besylate 40 mg/ (Sodium Chloride) 100 mls @ 37.35 mls/hr IV .Q2H41M JOIE; Protocol Stop: 09/03/18 23:14 Last Admin: 08/05/18 10:04 Dose: 3 mcg/kg/min, 37.4 mls/hr Documented by: [id number] Cosigned by: [id number] Titration: 08/05/18 08:10 Dose: 0 mcg/kg/min, 0 mls/hr Documented by: [id number] Titration: 08/05/18 07:02 Dose: 3 mcg/kg/min, 37.4 mls/hr Documented by: [id number] Cosigned by: [id number] Admin: 08/05/18 05:24 Dose: 3 mcg/kg/min, 37.4 mls/hr Documented by: [id number] Cosigned by: [id number] Titration: 08/05/18 05:24 Dose: 3 mcg/kg/min, 37.4 mls/hr Documented by: [id number] Cosigned by: [id number] Admin: 08/05/18 02:43 Dose: 3 mcg/kg/min, 37.4 mls/hr Documented by: [id number] Cosigned by: [id number] Titration: 08/05/18 02:25 Dose: 3 mcg/kg/min, 37.4 mls/hr Documented by: [id number] Cosigned by: [id number] Admin: 08/04/18 23:44 Dose: 3 mcg/kg/min, 37.4 mls/hr Documented by: [id number] Cosigned by: [id number] Magnesium Sulfate/Dextrose (Magnesium Sulfate / D5w) 1 gm in 100 mls @ 100 mls/hr IV 0900,1000 JOIE Stop: 08/05/18 20:00 Last Infusion: 08/05/18 10:18 Dose: 0 mls/hr Documented by: [id number] Admin: 08/05/18 09:14 Dose: 100 mls/hr Documented by: [id number] Infusion: 08/05/18 09:14 Dose: 100 mls/hr Documented by: [id number] Admin: 08/05/18 08:22 Dose: 100 mls/hr Documented by: [id number] Insulin Aspart (Novolog Flexpen) 0 units SC Q6 JOIE Stop: 09/03/18 17:59 Last Admin: 08/05/18 06:13 Dose: Not Given Documented by: [id number] Cosigned by: [id number] Admin: 08/05/18 00:01 Dose: Not Given Documented by: [id number] Cosigned by: [id number] Admin: 08/04/18 17:31 Dose: Not Given Documented by: [id number] Cosigned by: [id number] Midazolam HCl (Versed) 2 mg IV Q2H PRN PRN Reason: agitation/anxiety Stop: 09/03/18 15:35 Last Admin: 08/05/18 09:02 Dose: 2 mg Documented by: [id number] Admin: 08/04/18 17:59 Dose: 2 mg Documented by: [id number] Rotigotine [Neupro] 6 Mg/24hr Patch - Non-Formulary Patient's Own Med 1 ea TOP HS JOIE Stop: 09/03/18 20:59 Last Admin: 08/04/18 22:04 Dose: 6 mg Documented by: [id number] Rasagiline [Azilect] 1mg Tab - Non- Formulary Patient's Own Med 1 ea PO DAILY [facility] Stop: 09/03/18 17:29 Last Admin: 08/05/18 08:17 Dose: Not Given Documented by: [id number] Admin: 08/05/18 00:00 Dose: Not Given Documented by: [id number] Rivastigmine (Exelon) 1 patch TD HS [facility]; Protocol Stop: 09/03/18 20:59 Last Admin: 08/04/18 22:04 Dose: 1 patch Documented by: [id number] Discontinued Medications Atropine Sulfate (Atropine Sulfate 1mg/Ml) Confirm Administered Dose 1 mg .ROUTE .STK-MED ONE Stop: 08/04/18 12:51 Last Admin: 08/04/18 12:51 Dose: 0.5 mg Documented by: [id number] Atropine Sulfate (Atropine Sulfate) 0.5 mg IV NOW STA Stop: 08/04/18 13:03 Last Admin: 08/04/18 13:06 Dose: Not Given Documented by: [id number] Sodium Chloride (Nss 1000ml) 500 mls @ 999 mls/hr IV .Q31M ONE Stop: 08/04/18 12:45 Last Infusion: 08/04/18 12:53 Dose: 0 mls/hr Documented by: [id number] Admin: 08/04/18 12:20 Dose: 999 mls/hr Documented by: [id number] Parenteral Electrolytes (Normosol-R) 1,000 mls @ 125 mls/hr IV .Q8H JOIE Stop: 09/03/18 15:35 Last Infusion: 08/04/18 17:51 Dose: 0 mls/hr Documented by: [id number] Admin: 08/04/18 15:59 Dose: 125 mls/hr Documented by: [id number] Levetiracetam 1,000 mg/ (Dextrose) 110 mls @ 440 mls/hr IV NOW STA Stop: 08/04/18 16:41 Last Infusion: 08/04/18 17:51 Dose: 0 mls/hr Documented by: [id number] Admin: 08/04/18 16:59 Dose: 440 mls/hr Documented by: [id number] Cisatracurium Besylate 40 mg/ (Sodium Chloride) 100 mls @ 37.35 mls/hr IV .Q2H41M [facility]; Protocol Stop: 08/04/18 23:15 Last Titration: 08/05/18 00:10 Dose: 0 mcg/kg/min, 0 mls/hr Documented by: [id number] Titration: 08/04/18 22:10 Dose: 3 mcg/kg/min, 37.4 mls/hr Documented by: [id number] Titration: 08/04/18 21:21 Dose: 2 mcg/kg/min, 24.9 mls/hr Documented by: [id number] Admin: 08/04/18 20:54 Dose: 1 mcg/kg/min, 12.5 mls/hr Documented by: [id number] Cosigned by: [id number] Fosphenytoin Sodium 1,500 mgpe (/ Sodium Chloride) 80 mls @ 480 mls/hr IV NOW STA Stop: 08/05/18 10:14 Last Admin: 08/05/18 10:12 Dose: 480 mls/hr Documented by: [id number] Miscellaneous (Order Awaiting Action) 1 ea N/A QS JOIE Stop: 09/03/18 15:59 Last Admin: 08/04/18 17:29 Dose: Not Given Documented by: [id number] Miscellaneous (Order Awaiting Action) 1 ea N/A QS JOIE Stop: 09/03/18 15:59 Last Admin: 08/04/18 17:28 Dose: Not Given Documented by: [id number] Miscellaneous (Order Awaiting Action) 1 ea N/A QS JOIE Stop: 09/03/18 15:59 Last Admin: 08/04/18 17:29 Dose: Not Given Documented by: [id number] Propofol (Diprivan) Confirm Administered Dose 1,000 mg IV .STK-MED ONE Stop: 08/04/18 17:18 Last Admin: 08/04/18 17:29 Dose: 1,000 mg Documented by: [id number] Cosigned by: [id number] Sodium Bicarbonate (Sodium Bicarbonate 8.4%) Confirm Administered Dose 100 meq .ROUTE .STK-MED ONE Stop: 08/04/18 13:11 Last Admin: 08/04/18 13:15 Dose: Not Given Documented by: [id number] Sodium Bicarbonate (Sodium Bicarbonate 8.4%) Confirm Administered Dose 100 meq .ROUTE .STK-MED ONE Stop: 08/04/18 13:12 Last Admin: 08/04/18 13:24 Dose: 100 meq Documented by: [id number] Description This is a 21 electrode EEG with a single channel dedicated to limited EKG. The electrodes were placed in accordance with the International 10-20 system. At the start of the recording the patient was intubated and unresponsive. Background was poorly organized with no anterior to posterior gradient. Background was composed of fluctuating 5-7 Hz high amplitude spike and slow waves with bifrontal predominance. At that time there would be higher amplitude activity with spread to more posterior regions and background activity would become more rhythmic. On video there was intermittent low amplitude shaking of the head and body. Hyperventilation and photic stimulation were not done. There was no state changes or sleep transients. Interpretation This is an abnormal routine EEG secondary to ongoing status epilepticus. Clinical Correlation EEG findings are consistent with ongoing clinical and subclinical status epilepticus. Results conveyed to neurology consult
--- NOTE | 2018-08-05 10:58 | XRay Report ---
XR chest 1V portable CLINICAL HISTORY: Respiratory failure; intubated tube position COMPARISON STUDY: 08/04/2018 FINDINGS: The endotracheal tube remains approximately the level of T1 and/or thoracic inlet. This aga in is not considered appropriately positioned and should be reevaluated/repositioned. There is nasoga stric tube within the stomach. Lungs remain generally clear. IMPRESSION: 1. Nasogastric tube within the stomach. 2. Lungs are clear. 3. Probable endotracheal tube remains at the thoracic inlet and/or T1 level. This should be advanced The above report was generated using voice recognition software. It may contain grammatical, syntax or spelling errors. Electronically signed by: Sean Espinosa M.D. 08/05/2018 10:57 AM
[2018-08-05] MEDS ORDERED: PANTOprazole 40 MG in SYRINGE 0 ML IV SCH (11:00)
--- NOTE | 2018-08-05 11:20 | XRay Report ---
XR chest 1V portable HISTORY: 72 years-old Male ET tube adjustment acute respiratory failure. COMPARISON: Chest radiograph 08/05/2018 TECHNIQUE: Portable AP view of the chest FINDINGS: Cardiac mediastinal and hilar silhouettes are unchanged. Endotracheal tube overlies the midline, 10.1 cm superior to the sujey, above the level of the clavicular heads. Enteric tube courses below the d iaphragm, outside the [id number]. No pneumothorax, pleural effusion or overt pulmonary edema. No l obar airspace consolidation. Degenerative changes of the shoulders and spine. IMPRESSION: 1. Endotracheal tube overlies the midline, 10.1 cm superior to the sujey. Advancement with follow-up imaging recommended. 2. Enteric tube courses inferiorly to the diaphragm, outside the field of view. The above report was generated using voice recognition software. It may contain grammatical, syntax o r spelling errors. Electronically signed by: Waldemar Fields M.D. 08/05/2018 11:19 AM
[2018-08-05] MEDS: fentaNYL citrate 100 MCG/2 ML VIAL IV PRN (11:45)
--- NOTE | 2018-08-05 13:00 | Discharge Summary ---
Date of Service August 05, 2018 Admission HPI Per Admitting Provider Mr. Pedersen is a 72 y/o male with PMHx of Advanced Parkinson's Disease, HTN, CKD III, and ?Seizure Disorder who presents to the ED by EMS for seizure activity and cardiac arrest. HPI obtained by at bedside as patient is currently intubated. She reports she heard a loud sound and thought he fell. However, when she found him he was sitting in the chair and actively seizing. She states this episode lasted about 10 minutes. She states he doesn't directly have a seizure disorder but seems to have seizures when he falls. He does have documented syncopal episodes likely related to autonomic dysregulation from Parkinsons and maybe these are more syncopal episodes? Regardless, these normally only last 30 seconds and comes to rather quickly. She states he remained unresponsive during this episode today. Upon arrival of EMS he was found to be apneic and asystole. CPR was initiated and he was intubated. He was given epinephrine x 1 with resultant sinus tachycardia. While in the ED, he then developed bradycardia and was treated with Atropine. Labs currently rather unremarkable at this time. ABG shows pH 7.17, CO2 63, pO2 175, and HCO3 of 23. states he has been in his normal state of health recently without illness. She denies known cardiac disease but states he had a loop recorder x 2 years that was removed due to no underlying arrhythmias noted. Principal Diagnosis Status Epilepticus with Respiratory Arrest/Cardiac Arrest Discharge Exam Constitutional well developed and well nourished; no acute distress Eyes + anicteric sclerae ENMT ET tube placed with some mild lower lip edema Neck trachea midline Respiratory normal respiratory effort, lungs clear to auscultation Cardiovascular Rate/Rhythm: regular rate and regular rhythm Heart Sounds: no murmur Vessels: normal peripheral pulses; no JVD Extremities: no edema Gastrointestinal (Abdomen) Inspection/Auscultation: normal bowel sounds Musculoskeletal Head/Neck/Chest: normocephalic and head atraumatic Extremities: no cyanosis and no clubbing Skin no rashes, warm and dry Neurologic + obtunded Motor/Sensory: + abnormal movement (having twitching and slight diffuse extremity movements) Psychiatric Orientation: + not alert Discharge Data Allergies Allergy/AdvReac Type Severity Reaction Status Date / Time No Known Allergies Allergy Verified 08/04/18 13:49 Consultations 08/04/18 12:47 ED Decision to Admit Stat 08/04/18 13:28 Consult Case Management - Discharge Planning Routine 08/04/18 13:29 Consult Zumba Instructor Routine 08/04/18 15:36 Consult Case Management - Discharge Planning Routine Consult Zumba Instructor Routine 08/04/18 18:16 Consult Neurology Routine 08/05/18 11:20 Burn CD for patient Stat Procedures Performed EEG x 2 ECHO Ordered Studies 08/04/18 12:01 CT head/brain wo con Stat 08/04/18 12:14 CT cervical spine wo con Stat CXRs [facility] Course (1) Cardiopulmonary arrest: - Pt possibly had a seizure for approx. 10 minutes and was found to be apneic and asystole upon arrival of EMS - was intubated and given epi x 1 which resulted in sinus tachycardia; then had episodes of bradycardia which responded to atropine in the ED - suspect possible repiratory arrest that led to cardiac arrest but did achieve ROSC - Currently remains intubated and unresponsive - head CT unremarkable - Initial ABG with pH 7.17, CO2 63, pO2 175, and HCO3 23 which did improve some with pH to 7.55 and initially utilized hyperventilation - Echo - EF 50-55%; no wall motion abnormalities - Lactic 2.5 but improved to 0.8 - Admitted to the ICU - will be transfered to [facility] for tertiary care and continuous EEG monitoring (2) Acute anoxic encephalopathy: - Due to respiratory/cardiac arrest - initial EEG on 08/04 supported anoxic encephalopathy however EEG on 08/06 with findings of status epilepticus (3) Status epilepticus: - Reported seizure-like activity for approx. 10 minutes - questionable seizure history as family at bedside states he would only have them intermittently when he falls and only lasts approx. 30 seconsd which given his orthostasis and syncope history maybe these "seizures" are more from the syncope and this is related to autonomic dysregulation given his Parkinsons - No reports of emesis; CXR currently WNL without signs of aspiration event - Keppra 1000 mg IV BID initiated - He was noted to have increasing spasms/convulsions - maybe some from is Parkinsons vs seizure activity given EEG findings - EEG on 08/05 supporting status epilepticus and needs 24 hour EEG monitoring and will be life flighted to [facility] - accepting physician Dr. Mai (4) CKD (chronic kidney disease), stage III: - Baseline appears to be 1.3-1.6 and now at 2.4 and likely having some ATN given arrest and hypotension - Wallace present and monitor urine output and trend labs (5) Essential hypertension: - Currently elevated but did have hypotension initially - Per outpatient records it is stated he is on Metoprolol which will need to be F/U on to see if this is truly being used as he does have issues with orthostasis and takes midodrine (6) Parkinson disease: - Amantadine 100 mg TID, Neupro patch daily; Rasagiline 1 mg daily; Exelon patch daily Total Time Total Time Spent Total Time Spent (In Minutes): Greater than 30 minutes Discharge Plan Discharge Items Patient Disposition: Transfer Acute Care Hospital Reason For Visit: cardiac arrest Discharge Diagnosis: Status Epilepticus Discharge Goals: Decrease discomfort, Diagnostic testing and Therapeutic intervention Activity: Resume your previous activity Non-emergency contact: Primary Care Provider Call non-emergency contact if: you have any medication questions, your symptoms worsen and your pain is not controlled Follow-up/Referrals: Pro,Francesco Siddiqi MD [Primary Care Provider] - Diet: Nothing by mouth Addtl Provider Instructions: (1) Cardiopulmonary arrest: - Pt possibly had a seizure for approx. 10 minutes and was found to be apneic and asystole upon arrival of EMS - was intubated and given epi x 1 which resulted in sinus tachycardia; then had episodes of bradycardia which responded to atropine in the ED - suspected respiratory arrest leading to cardiac arrest - Currently remains intubated and unresponsive - head CT unremarkable with possible MRI - high suspicion for an anoxic brain injury - Initial ABG with pH 7.17, CO2 63, pO2 175, and HCO3 23 with serial ABGs ordered - Utilizing hyperventilation to help correct acidosis initially which did improve pH - Echo - EF 50-55%; no wall motion abnormalities - Lactic 2.5 initially and now WNL - Appreciate medical billing assistant management of ventilator/acidosis (2) Status epilepticus: - Reported seizure-like activity for approx. 10 minutes - questionable seizure history as family at bedside states he would only have them intermittently when he falls and only lasts approx. 30 seconsd which given his orthostasis and syncope history maybe these "seizures" are more from the syncope and this is related to autonomic dysregulation given his Parkinsons - No reports of emesis; CXR currently WNL without signs of aspiration event - Continued to have epileptic findings on EEG - initial with encephalopathy but todays reading supports status epilepticus History of seizure: - See above CKD (chronic kidney disease), stage III: - Baseline appears to be 1.3-1.6 and rising at 2.49 - given arrest/hypotension likely a component of ATN - Wallace present and monitor urine output and trend labs as he would be at risk for ATN as he also had hypotension initially Essential hypertension: - Currently elevated but did have hypotension initially - Per outpatient records it is stated he is on Metoprolol which will need to be F/U on to see if this is truly being used as he does have issues with orthostasis and takes midodrine Parkinson disease: - Amantadine 100 mg TID, Neupro patch daily; Rasagiline 1 mg daily; Exelon patch daily Prescriptions: Continued metoprolol tartrate 25 mg tablet 25 mg PO BID RF: 0 amantadine HCl 100 mg Tablet 100 mg PO TID RF: 0 clonazepam 0.5 mg Tablet 0.5 mg PO HS PRN (Reason: Insomnia) RF: 0 carbidopa-levodopa 50-200 mg Tablet Extended Release 1 tab PO TID RF: 0 gabapentin 400 mg Capsule 400 mg PO DAILY RF: 0 midodrine 5 mg Tablet 5 mg PO BID RF: 0 aspirin [Aspir-81] 81 mg Tablet,Delayed Release (Dr/Ec) 81 mg PO HS RF: 0 rasagiline [Azilect] 1 mg Tablet 1 mg PO DAILY RF: 0 omeprazole 20 mg Tablet,Delayed Release (Dr/Ec) 20 mg PO DAILY RF: 0 Neupro 8 mg/24 hour Patch 24 Hour 1 patch TRANSDERMAL DIRECTED RF: 0 rivastigmine [Exelon] 13.3 mg/24 hour Patch 24 Hour 1 patch TRANSDERMAL DAILY RF: 0 Stand-Alone Forms: [facility] Discharge Orders: Discharge Order (Routine); Ordered 08/05/18 Ordered By: Areli Chavira Admission Data Admit Date/Time: 08/04/18 13:28 Attending Provider: Noemí Nielson Admit Provider: Noemí Nielson Primary Care Provider: Francesco Mendez. Other Providers: Earl Ramires Service: Intensive Care Unit Other Interventions: Discharge Summary Assessment (RN) Last Done: 03/05/19 11:22 Pending Studies at Discharge: No DC Date/Time DO NOT enter until pt leaves facility: 08/05/18 12:10 Supervising Physician Co-Signing Physician Notes PA Supervision Note: I personally saw and examined the patient. I verified all frost points and agree with DOE Chavira with the following exceptions and/or additions: Pt intubated and obtunded. Discussed care with Zumba Instructor DOE and recommendation for transfer to tertiary care facility for continuous EEG monitoring Obtunded, intuabted RRR no mgr CTAB no wcr Abd +BS sof [place] Ext no edema 72 yo male here s/p respiratory and cardiac arrest after suspected seizure, now with status epilepticus. -Continue full support with ventilator, cardiopulm support, antiepileptic drugfs, and transfer out by life flight. Overall very poor prognosis for survival.
[2018-08-05] MEDS ORDERED: PHENYTOIN 100 MG in SYRINGE 0 ML IV SCH (18:00)
[2018-08-05] MEDS ORDERED: 0.9 % SODIUM CHLORIDE FLUSH 20 ML in SYRINGE 0 ML IV SCH (18:00)
[2018-08-05] MEDS ORDERED: [UNRECOGNIZED DRUG - OTHER] SCH (20:59)
[2018-08-05] MEDS ORDERED: [UNRECOGNIZED DRUG - OTHER] SCH (20:59)
== END 2018-08-05 12:10 | disposition short-term general hospital (02) | DRG 296 ==
LOC: ED 11:58 → SUATTDRO 13:28 → 1E 13:28
DX: R00.1 Bradycardia, unspecified; I46.9 Cardiac arrest, cause unspecified; E87.2 Acidosis; G20 Parkinson's disease; Z79.899 Other long term (current) drug therapy; N17.0 Acute kidney failure with tubular necrosis; G93.1 Anoxic brain damage, not elsewhere classified; I12.9 Hypertensive chronic kidney disease with stage 1 through stage 4 chronic kidney disease, or unspecified chronic kidney disease; N18.3 Chronic kidney disease, stage 3 (moderate); I95.9 Hypotension, unspecified; F17.200 Nicotine dependence, unspecified, uncomplicated; G40.901 Epilepsy, unspecified, not intractable, with status epilepticus; J96.02 Acute respiratory failure with hypercapnia; Z79.82 Long term (current) use of aspirin; J96.01 Acute respiratory failure with hypoxia; R40.2432 Glasgow coma scale score 3-8, at arrival to emergency department